=== PATIENT | female | born 1945 | race Caucasian/White ===

== ENCOUNTER 2021-07-04 16:23 | Emergency (ER) | payer OTHER ==
[~2021-07-04] VITALS: Ht 177.8 cm; Wt 99.8 kg
--- NOTE | 2021-07-04 16:52 | NUR ---
TO ER BED 3, C/O C/O ABDOMINAL PAIN, NAUSEA AND VOMITING STARTED YESTERDAY, SALINE LOCK ESTABLISHED, BLOOD DRAWN
[2021-07-04 17:23] LABS: BASOPHILS # (AUTO) 0.1 K/uL (0.0-0.2); BASOPHILS % (AUTO) 0.9 % (0.0-2.0); EOSINOPHILS % (AUTO) 1.2 % (0.0-6.0); HEMATOCRIT 41 % (33-45); HEMOGLOBIN 13.9 g/dL (11.5-14.8); LYMPHOCYTES # (AUTO) 1.6 K/uL (0.8-4.8); LYMPHOCYTES % (AUTO) 19.2 % (20.0-44.0); MEAN CORPUSCULAR HGB CONC 34 g/dl (31.0-36.0); MEAN CORPUSCULAR VOLUME 90 fL (82-100); MONOCYTES # (AUTO) 0.6 K/uL (0.1-1.30); MONOCYTES % (AUTO) 7.1 % (2.0-12.0); NEUTROPHILS % (AUTO) 71.6 % (43.0-81.0); PLATELET COUNT (AUTO) 176 K/uL (150-450); RED BLOOD CELL COUNT(AUTO) 4.58 MIL/uL (4.0-5.2); WHITE BLOOD COUNT (AUTO) 8.4 K/uL (4.3-11.0)
[2021-07-04] MEDS ORDERED: MORPHINE SULFATE INJ 4 MG/ML DISP.SYRIN ONE (17:23)
[2021-07-04] MEDS ORDERED: ONDANSETRON HCL/PF 4 MG/2 ML VIAL ONE (17:23)
[2021-07-04] MEDS ORDERED: ONDANSETRON HCL/PF 4 MG/2 ML VIAL IVP ONE (17:30)
[2021-07-04] MEDS ORDERED: MORPHINE SULFATE INJ 2 MG/ML DISP.SYRIN IV ONE (17:30)
[2021-07-04 17:50] LABS: ASPARTATE AMINOTRANSFERASE 8 U/L (15-37)
[2021-07-04 17:59] LABS: CALCIUM, SERUM 8.8 mg/dL (8.5-10.1); CARBON DIOXIDE 26 mmol/L (21-32); CHLORIDE 102 mmol/L (98-107); CREATININE 0.5 mg/dL (0.6-1.3); GLUCOSE 112 mg/dL (74-106); POTASSIUM 4.3 mmol/L (3.5-5.1); SODIUM SERUM 136 mmol/L (136-145); UREA NITROGEN, BLOOD 12 mg/dL (7-18)
[2021-07-04 18:05] LABS: ALANINE AMINOTRANSFERASE 12 U/L (12-78); ALBUMIN 3.2 g/dL (3.4-5.0); ALKALINE PHOSPHATASE 105 U/L (46-116); BILIRUBIN,DIRECT 0.2 mg/dL (0.0-0.2); BILIRUBIN,TOTAL 0.4 mg/dL (0.2-1.0)
[2021-07-04 18:13] LABS: LIPASE 52 U/L (73-393)
--- NOTE | 2021-07-04 19:37 | NUR ---
URINE SENT TO LAB
[2021-07-04 19:50] LABS: BILIRUBIN,URINE NEGATIVE (NEGATIVE); COLOR,URINE YELLOW (YELLOW); LEUKOCYTE ESTERASE ,URINE MODERATE (NEGATIVE); NITRITE, URINE NEGATIVE (NEGATIVE); PH,URINE 7.5 (5.0-8.0); PROTEIN,URINE NEGATIVE (NEGATIVE); UGLUCOSE NEGATIVE (NEGATIVE); UROBILINOGEN,URINE 0.2 EU/dL (0.2)
[2021-07-04 19:58] LABS: BACTERIA,URINE 2+ /HPF (None Seen)
--- NOTE | 2021-07-04 20:44 | NUR ---
AMBULANCE TRANSPORT TO HOME WILL BE BETWEEN 2300 AND MIDNIGHT PER [facility] VIA [facility].
[2021-07-04] MEDS ORDERED: CEFTRIAXONE 1 G in IV D5W 50 ML IV ONE (21:00)
[2021-07-04] MEDS ORDERED: DOCU-141 PO (21:02)
[2021-07-04] MEDS ORDERED: POLY17PO4 PO (21:02)
[2021-07-04] MEDS ORDERED: CEPH500C2 PO (21:02)
[2021-07-04] MEDS ORDERED: CEFTRIAXONE 1GM BAG (ER ONLY) 50 ML IV ONE (21:04)
--- NOTE | 2021-07-04 22:41 | NUR ---
gave report to ems
--- NOTE | 2021-07-04 22:44 | NUR ---
Patient discharged to home in stable condition. Written and verbal after care instructions given. Patient verbalizes understanding of instruction. IV removed. Catheter intact and site benign. Pressure and 4x4 applied to site. No bleeding noted. transferred to ambulance [facility]
[2021-07-05 01:09] VITALS: BP 135/87
== END 2021-07-04 22:44 | disposition home or self-care (01) ==
LOC: ER 16:25
DX: K59.00 Constipation, unspecified (principal); N39.0 Urinary tract infection, site not specified; N13.30 Unspecified hydronephrosis; I45.10 Unspecified right bundle-branch block; G62.9 Polyneuropathy, unspecified; Z90.49 Acquired absence of other specified parts of digestive tract
CPT/HCPCS: 36415; 71045; 74176; 80048; 80076; 81001; 83605; 83690; 84484; 85025; 87086; 93005; 96365; 96375; 99285; J0696 ×2; J2270; J2405; J7060; 87186-TC

== ENCOUNTER 2025-09-06 20:00 | Inpatient (IN) | payer BC ==
[2025-09-05] MEDS: VANCOMYCIN 500 MG in IV D5W 100ml IV ONE (01:00)
[~2025-09-06] VITALS: Ht 167.6 cm; Wt 80.7 kg
[~2025-09-06 20:00] MED LIST: CEPH500C2 PO; DOCU-141 PO; POLY17PO4 PO
[2025-09-06] MEDS ORDERED: PIPERACI/TAZO 3.375GM/D5W 50ML PB IV ONE (20:26)
[2025-09-06] MEDS: IV NS 0.9% 1,000 ML BAG IV ONE (20:30)
[2025-09-06] MEDS: PIPERACILLIN /TAZOBACTAM 3.375 G in IV D5W 50 ML IV ONE (20:30)
[2025-09-06 20:59] LABS: PLATELET COUNT (AUTO) 297 K/uL (150-450); RED BLOOD CELL COUNT(AUTO) 4.68 MIL/uL (4.0-5.2); RED CELL DISTRIBUTION WIDTH 14.3 % (11.5-15.0); WHITE BLOOD COUNT (AUTO) 15.6 K/uL (4.3-11.0)
[2025-09-06 21:05] LABS: INR 0.99 (0.91-1.10)
[2025-09-06] MEDS ORDERED: VANCOMYCIN 1 GM /D5W 250 ML PB IV ONE (21:07)
[2025-09-06] MEDS: VANCOMYCIN 1 GM in IV D5W 250 ML IV ONE (21:10)
[2025-09-06 21:15] LABS: CALCIUM, SERUM 8.9 mg/dL (8.5-10.1); CREATININE 0.9 mg/dL (0.6-1.3); SODIUM SERUM 132 mmol/L (136-145); UREA NITROGEN, BLOOD 54 mg/dL (7-18)
[2025-09-06 21:28] LABS: ASPARTATE AMINOTRANSFERASE 18 U/L (15-37); TOTAL PROTEIN, SERUM 7.1 g/dL (6.4-8.2)
[2025-09-06 21:33] LABS: LACTIC ACID 2.1 mmol/L (0.4-2.0)
[2025-09-06 21:42] LABS: APPEARANCE,URINE SLIGHTLY CLOUDY (CLEAR); BLOOD, URINE NEGATIVE Ery/uL (NEGATIVE); LEUKOCYTE ESTERASE ,URINE 2+ (NEGATIVE); NITRITE, URINE POSITIVE (NEGATIVE); UGLUCOSE NEGATIVE (NEGATIVE)
[2025-09-06 21:59] LABS: SQUAMOUS EPITHELIAL CELL,UR Moderate /HPF (None Seen)
[2025-09-06 22:00] LABS: ADD URINE CULTURE YES
[2025-09-06] MEDS ORDERED: ACETAMINOPHEN 325 MG TABLET PO PRN (22:00)
[2025-09-06] MEDS ORDERED: Z GUARD REMEDY 4 OZ OINT TP PRN (22:00)
[2025-09-06] MEDS ORDERED: ONDANSETRON HCL/PF 4 MG/2 ML VIAL IVP PRN (22:00)
[2025-09-06] MEDS ORDERED: MAGNESIUM HYDROXIDE 30 ML UDC PO PRN (22:00)
[2025-09-06] MEDS ORDERED: DOSING PER PHARMACY-VANCOMYCIN IV XX PRN (22:00)
[2025-09-06 22:02] LABS: URINE AMORPHOUS URATE Few /HPF (None Seen)
[2025-09-06] MEDS ORDERED: LEVE500T20 PO (22:25)
[2025-09-06] MEDS ORDERED: LISI-768 PO (22:26)
[2025-09-06] MEDS ORDERED: AMLO-212 PO (22:27)
[2025-09-06] MEDS ORDERED: PANT40TA49 PO (22:27)
[2025-09-06 23:30] VITALS: BP 120/59; O2SAT 96
[2025-09-06] MEDS ORDERED: PANTOPRAZOLE 40 MG TABLET.DR PO SCH (23:30)
[2025-09-06] MEDS ORDERED: AMLODIPINE BESYLATE 5 MG TABLET PO SCH (23:30)
[2025-09-07] VITALS (45 sets, daily range): BP systolic 61–137; BP diastolic 36–65; TEMP 97.6–98.7; O2SAT 80–100
[2025-09-07 00:05] LABS: ABG BASE EXCESS -5.5 mmol/L (-2.0-3.0); ABG OXYGEN SATURATION 92.3 % (94.0-98.0); ABG PCO2 68.7 mmHg (32.0-45.0); ABG PH 7.170 (7.350-7.450); ABG PO2 70.6 mmHg (83.0-108.0); ABG TOTAL HEMOGLOBIN 14.6 G/dL (12.0-16.0); FLOW, BLOOD GAS 15.00 L/min (0.00-30.00); FRACTIONATED INSPIRED OXYGEN 80.0 %; SITE, ABG RIGHT RADIAL
[2025-09-07] MEDS ORDERED: VANCOMYCIN 500 MG VIAL ONE (00:24)
[2025-09-07] MEDS: ENOXAPARIN SODIUM 30 MG/0.3 ML DISP.SYRIN SQ SCH (01:40)
[2025-09-07] MEDS: PIPERACI/TAZO 3.375GM/D5W 50ML PB IV ONE (03:46)
[2025-09-07] MEDS: PIPERACILLIN /TAZOBACTAM 3.375 G in IV D5W 50 ML IV SCH (04:29)
[2025-09-07 05:36] LABS: PLATELET COUNT (AUTO) 279 K/uL (150-450); RED BLOOD CELL COUNT(AUTO) 4.52 MIL/uL (4.0-5.2); RED CELL DISTRIBUTION WIDTH 14.7 % (11.5-15.0); WHITE BLOOD COUNT (AUTO) 15.3 K/uL (4.3-11.0)
[2025-09-07 05:50] LABS: CALCIUM, SERUM 8.6 mg/dL (8.5-10.1); CREATININE 0.7 mg/dL (0.6-1.3); PHOSPHORUS 4.1 mg/dL (2.5-4.9); SODIUM SERUM 131.0 mmol/L (136-145); UREA NITROGEN, BLOOD 48.0 mg/dL (7-18)
[2025-09-07] MEDS: LEVETIRACETAM (250 MG) 250 MG TABLET PO SCH (08:40)
[2025-09-07] MEDS: POLYETHYLENE GLYCOL 3350 17 GM POWD.PACK PO SCH (08:41)
[2025-09-07] MEDS: AMLODIPINE BESYLATE 5 MG TABLET PO SCH (08:41)
[2025-09-07] MEDS: PANTOPRAZOLE 40 MG TABLET.DR PO SCH (08:42)
[2025-09-07] MEDS: LISINOPRIL (5MG) 5 MG TABLET PO SCH (08:47)
[2025-09-07] MEDS: DOCUSATE SODIUM LIQ 100 MG/10 ML UDC GT SCH (08:48)
[2025-09-07] MEDS: IV NS 0.9% 1,000 ML IV PRN (08:51)
[2025-09-07] MEDS ORDERED: DOCUSATE SODIUM 100 MG CAPSULE PO SCH (09:00)
[2025-09-07] MEDS ORDERED: MULT-594 PO (09:26)
[2025-09-07] MEDS ORDERED: LINA145C PO (09:26)
[2025-09-07] MEDS ORDERED: FLUO20CA36 PO (09:26)
[2025-09-07] MEDS ORDERED: LORA-258 PO (09:26)
[2025-09-07] MEDS ORDERED: DOCU100C36 PO (09:26)
[2025-09-07] MEDS ORDERED: PRED5DRO24 EACHEYE (09:26)
[2025-09-07] MEDS ORDERED: CARB15DR LEFTEYE (09:26)
[2025-09-07] MEDS ORDERED: PREG-58 PO (09:26)
[2025-09-07] MEDS ORDERED: BRIN8DRO2 RIGHTEYE (09:26)
[2025-09-07] MEDS ORDERED: ACET-73 PO (09:26)
[2025-09-07 11:29] LABS: ABG BASE EXCESS -2.1 mmol/L (-2.0-3.0); ABG OXYGEN SATURATION 98.4 % (94.0-98.0); ABG PCO2 47.3 mmHg (32.0-45.0); ABG PH 7.327 (7.350-7.450); ABG PO2 108.3 mmHg (83.0-108.0); ABG TOTAL HEMOGLOBIN 14.3 G/dL (12.0-16.0); FRACTIONATED INSPIRED OXYGEN 80.0 %; SET RATE, BG 20.0; SITE, ABG RIGHT RADIAL
[2025-09-07] MEDS: PIPERACILLIN /TAZOBACTAM 3.375 G in IV D5W 100 ML IV SCH (11:32)
[2025-09-07] MEDS: VANCOMYCIN 1 GM in IV D5W 250ml IV SCH (11:38)
[2025-09-07] MEDS: MULTIVITAMINS,THERAGRAN 1 UDTAB TABLET PO SCH (17:08)
[2025-09-08] VITALS (65 sets, daily range): BP systolic 66–182; BP diastolic 38–89; TEMP 97.7–98.9; O2SAT 70–100
[2025-09-08 03:01] LABS: CALCIUM, SERUM 8.4 mg/dL (8.5-10.1); CREATININE 0.7 mg/dL (0.6-1.3); SODIUM SERUM 134.0 mmol/L (136-145); UREA NITROGEN, BLOOD 50.0 mg/dL (7-18)
[2025-09-08] MEDS ORDERED: VANCOMYCIN 750 MG in IV D5W 250 ML IV SCH (06:00)
[2025-09-08] MEDS ORDERED: IV LR 500 ML IV ONE (06:00)
[2025-09-08] MEDS: IV LR 1000 ML 1,000 ML BAG IV ONE (07:48)
[2025-09-08] MEDS: FLUOXETINE HCL 20 MG CAPSULE PO SCH (09:00)
[2025-09-08] MEDS: CARBOXYMETHYLCELLULOSE SODIUM 1 EA TUBE LEFTEYE SCH (09:40)
[2025-09-08] MEDS: BRIMONIDINE TARTRATE OPHT SOLN 5 ML BOTTLE RIGHTEYE SCH (09:42)
[2025-09-08] MEDS: prednisoLONE ACET 1% OPHT DROP 5 ML BOTTLE EACHEYE SCH (09:43)
[2025-09-08] MEDS: DAKINS QUARTER STRENGTH (0.125%) 480 ML BOTTLE TOP SCH (09:43)
[2025-09-08] MEDS: BRINZOLAMIDE 1 % OPHTH SOLN 10 ML BOTTLE RIGHTEYE SCH (10:49)
[2025-09-08] MEDS: MAG HYDROX/AL HYDROX/SIMETH 30 ML UDC PO PRN (11:52)
[2025-09-08] MEDS: DOCUSATE SODIUM 100 MG CAPSULE PO SCH (13:21)
[2025-09-08] MEDS: LIDOCAINE 2%-EPI 1:100,000 30 ML VIAL IJ ONE (14:57)
[2025-09-08] MEDS: NOREPINEPHRINE 8 MG in IV NS 0.9% 242 ML IV PRN (17:58)
[2025-09-08] MEDS: IV NS 0.9% 250 ML IV PRN (19:30)
[2025-09-09] VITALS (30 sets, daily range): BP systolic 94–168; BP diastolic 44–86; TEMP 97.4–98; O2SAT 83–100
[2025-09-09 04:22] LABS: PLATELET COUNT (AUTO) 121 K/uL (150-450); RED BLOOD CELL COUNT(AUTO) 3.74 MIL/uL (4.0-5.2); RED CELL DISTRIBUTION WIDTH 14.7 % (11.5-15.0); WHITE BLOOD COUNT (AUTO) 14.5 K/uL (4.3-11.0)
[2025-09-09 04:34] LABS: CALCIUM, SERUM 8.7 mg/dL (8.5-10.1); CREATININE 0.5 mg/dL (0.6-1.3); PHOSPHORUS 2.4 mg/dL (2.5-4.9); SODIUM SERUM 140.0 mmol/L (136-145); UREA NITROGEN, BLOOD 38.0 mg/dL (7-18)
[2025-09-09] MEDS: VANCOMYCIN 750 MG in IV D5W 250 ML IV SCH (05:30)
[2025-09-09] MEDS: THERAHONEY GEL 1.5 OZ TUBE TP SCH (08:42)
[2025-09-09] MEDS ORDERED: PHARMACY TO CHANGE PO MEDS TO GT/NG XX PRN (10:00)
[2025-09-09] MEDS ORDERED: MAG HYDROX/AL HYDROX/SIMETH 30 ML UDC GT PRN (10:05)
[2025-09-09] MEDS ORDERED: MAGNESIUM HYDROXIDE 30 ML UDC GT PRN (10:06)
[2025-09-09] MEDS: POTASSIUM CHLORIDE 20 MEQ TAB.PRT.SR PO SCH (10:27)
[2025-09-09] MEDS: DOCUSATE SODIUM LIQ 100 MG/10 ML UDC GT SCH (12:16)
[2025-09-09] MEDS: JEVITY 1.2 CAL 1,000 ML BOTTLE GT PRN (12:44)
[2025-09-09] MEDS: NEUTRA PHOS 1 POWD.PACKET GT ONE (16:19)
[2025-09-09] MEDS: LEVETIRACETAM SOL (5 ML) 100 MG/ML UDC GT SCH (16:19)
[2025-09-09] MEDS: MULTIVITAMINS,THERAGRAN 1 UDTAB TABLET GT SCH (16:19)
[2025-09-09] MEDS: CEFEPIME 1 GM in IV D5W 50 ML IV SCH (21:01)
[2025-09-09] MEDS: Z GUARD REMEDY 4 OZ OINT TP SCH (21:06)
[2025-09-10] VITALS (26 sets, daily range): BP systolic 110–175; BP diastolic 52–92; TEMP 97.9–98.9; O2SAT 98–100
[2025-09-10 06:11] LABS: CALCIUM, SERUM 8.7 mg/dL (8.5-10.1); CREATININE 0.4 mg/dL (0.6-1.3); PHOSPHORUS 2.0 mg/dL (2.5-4.9); SODIUM SERUM 143.0 mmol/L (136-145); UREA NITROGEN, BLOOD 23.0 mg/dL (7-18)
[2025-09-10 09:13] LABS: PLATELET COUNT (AUTO) 232 K/uL (150-450); RED BLOOD CELL COUNT(AUTO) 4.22 MIL/uL (4.0-5.2); RED CELL DISTRIBUTION WIDTH 14.4 % (11.5-15.0); WHITE BLOOD COUNT (AUTO) 14.5 K/uL (4.3-11.0)
[2025-09-10] MEDS: FLUOXETINE HCL 20 MG CAPSULE GT SCH (10:00)
[2025-09-10] MEDS: POLYETHYLENE GLYCOL 3350 17 GM POWD.PACK GT SCH (10:01)
[2025-09-10] MEDS: PANTOPRAZOLE 40 MG/PACK PACK GT SCH (10:01)
[2025-09-10] MEDS: ARGININE/GLUTAMINE/CALCIUM BMB 1 EACH POWD.PACK PEG SCH (10:07)
[2025-09-10] MEDS: POTASSIUM CHLORIDE 20 MEQ POWDER PACKET GT ONE (11:43)
[2025-09-10] MEDS: ACETAMINOPHEN 650 MG/20.3 ML UDC GT PRN (12:39)
[2025-09-10] MEDS: NEUTRA PHOS 1 POWD.PACKET PO ONE (15:41)
[2025-09-10] MEDS: JEVITY 1.2 CAL 1,000 ML BOTTLE GT PRN (21:31)
[2025-09-11] VITALS (24 sets, daily range): BP systolic 116–153; BP diastolic 54–92; TEMP 97.9–98.3; O2SAT 97–100
[2025-09-11 03:46] LABS: PLATELET COUNT (AUTO) 239 K/uL (150-450); RED BLOOD CELL COUNT(AUTO) 4.34 MIL/uL (4.0-5.2); RED CELL DISTRIBUTION WIDTH 14.5 % (11.5-15.0); WHITE BLOOD COUNT (AUTO) 13.2 K/uL (4.3-11.0)
[2025-09-11 04:00] LABS: CALCIUM, SERUM 8.7 mg/dL (8.5-10.1); CREATININE 0.5 mg/dL (0.6-1.3); PHOSPHORUS 2.1 mg/dL (2.5-4.9); SODIUM SERUM 147.0 mmol/L (136-145); UREA NITROGEN, BLOOD 17.0 mg/dL (7-18)
[2025-09-11 05:03] LABS: ABG BASE EXCESS 1.8 mmol/L (-2.0-3.0); ABG OXYGEN SATURATION 98.7 % (94.0-98.0); ABG PCO2 33.3 mmHg (32.0-45.0); ABG PH 7.487 (7.350-7.450); ABG PO2 122.5 mmHg (83.0-108.0); ABG TOTAL HEMOGLOBIN 14.0 G/dL (12.0-16.0); FRACTIONATED INSPIRED OXYGEN 50.0 %; SET RATE, BG 20.0
[2025-09-11 05:50] LABS: LYMPHOCYTES % (MANUAL) 8 % (16-48); MONOCYTES % (MANUAL) 8 % (0-11.0); MYELOCYTES % 1 % (0-0); NEUTROPHILS % (MANUAL) 83 (42-76); PLATELET ESTIMATE ADEQUATE
[2025-09-11] MEDS: IV 1/2NS 1000 ML 1,000 ML IV SCH (09:44)
[2025-09-11] MEDS: CEFEPIME 2 GM in IV D5W 100 ML IV SCH (11:00)
[2025-09-11] MEDS: NEUTRA PHOS 1 POWD.PACKET NG ONE (16:51)
[2025-09-12] VITALS (25 sets, daily range): BP systolic 106–142; BP diastolic 49–89; TEMP 98–98.1; O2SAT 94–100
[2025-09-12 05:13] LABS: PLATELET COUNT (AUTO) 196 K/uL (150-450); RED BLOOD CELL COUNT(AUTO) 4.33 MIL/uL (4.0-5.2); RED CELL DISTRIBUTION WIDTH 14.7 % (11.5-15.0); WHITE BLOOD COUNT (AUTO) 13.0 K/uL (4.3-11.0)
[2025-09-12 05:26] LABS: ASPARTATE AMINOTRANSFERASE 22 U/L (15-37); CALCIUM, SERUM 7.8 mg/dL (8.5-10.1); CREATININE 0.3 mg/dL (0.6-1.3); PHOSPHORUS 2.3 mg/dL (2.5-4.9); SODIUM SERUM 138 mmol/L (136-145); TOTAL PROTEIN, SERUM 5.8 g/dL (6.4-8.2); UREA NITROGEN, BLOOD 26 mg/dL (7-18)
[2025-09-12 05:47] LABS: BAND % (MANUAL) 2 % (0.0-5.0); LYMPHOCYTES % (MANUAL) 11 % (16-48); MONOCYTES % (MANUAL) 9 % (0-11.0); NEUTROPHILS % (MANUAL) 78 (42-76); PLATELET ESTIMATE ADEQUATE
[2025-09-12] MEDS: ENOXAPARIN SODIUM 40 MG/0.4 ML DISP.SYRIN SQ SCH (09:19)
[2025-09-12] MEDS: ACETYLCYSTEINE 10% SOLN 400 MG/4 ML VIAL NEB SCH (09:21)
[2025-09-12] MEDS: FUROSEMIDE 40 MG/4 ML VIAL IV SCH (10:14)
[2025-09-12] MEDS ORDERED: LOSARTAN POTASSIUM 50 MG TABLET PO SCH (11:30)
[2025-09-12] MEDS: NEUTRA PHOS 1 POWD.PACKET GT ONE (15:49)
[2025-09-12] MEDS ORDERED: DIATR MEGLU/DIATRIZOATE SODIUM 30 ML BOTTLE (GASTROGRAPHIN) ONE (17:16)
[2025-09-13] VITALS (23 sets, daily range): BP systolic 92–139; BP diastolic 45–98; TEMP 97.8–98; O2SAT 91–100
[2025-09-13 05:17] LABS: CALCIUM, SERUM 8.3 mg/dL (8.5-10.1); CREATININE 0.4 mg/dL (0.6-1.3); PHOSPHORUS 3.1 mg/dL (2.5-4.9); SODIUM SERUM 140.0 mmol/L (136-145); UREA NITROGEN, BLOOD 26.0 mg/dL (7-18)
[2025-09-13] MEDS ORDERED: VANCOMYCIN HCL 1.25 GM in IV D5W 250 ML IV SCH (06:00)
[2025-09-13 10:30] LABS: PLATELET COUNT (AUTO) 223 K/uL (150-450); RED BLOOD CELL COUNT(AUTO) 4.48 MIL/uL (4.0-5.2); RED CELL DISTRIBUTION WIDTH 14.6 % (11.5-15.0); WHITE BLOOD COUNT (AUTO) 18.5 K/uL (4.3-11.0)
[2025-09-13] MEDS ORDERED: DIATR MEGLU/DIATRIZOATE SODIUM 30 ML BOTTLE (GASTROGRAPHIN) ONE (10:34)
[2025-09-13] MEDS: DIGOXIN INJ 0.5 MG/2 ML AMPUL IV SCH (12:33)
[2025-09-13 15:28] LABS: ABG BASE EXCESS 2.5 mmol/L (-2.0-3.0); ABG OXYGEN SATURATION 98.6 % (94.0-98.0); ABG PCO2 30.9 mmHg (32.0-45.0); ABG PH 7.520 (7.350-7.450); ABG PO2 115.1 mmHg (83.0-108.0); ABG TOTAL HEMOGLOBIN 13.6 G/dL (12.0-16.0); FRACTIONATED INSPIRED OXYGEN 40.0 %; SITE, ABG RIGHT RADIAL
[2025-09-14] VITALS (53 sets, daily range): BP systolic 97–168; BP diastolic 44–118; TEMP 98–98.5; O2SAT 69–100
[2025-09-14 05:09] LABS: PLATELET COUNT (AUTO) 224 K/uL (150-450); RED BLOOD CELL COUNT(AUTO) 4.24 MIL/uL (4.0-5.2); RED CELL DISTRIBUTION WIDTH 14.5 % (11.5-15.0); WHITE BLOOD COUNT (AUTO) 18.1 K/uL (4.3-11.0)
[2025-09-14] MEDS ORDERED: AMIODARONE 450 MG in IV D5W 250 ML IV PRN (10:30)
[2025-09-14] MEDS: AMIODARONE 150 MG in IV D5W 100 ML IV ONE (11:24)
[2025-09-14] MEDS: AMIODARONE 450 MG in IV D5W 241 ML IV PRN (11:39)
[2025-09-14] MEDS ORDERED: DIATR MEGLU/DIATRIZOATE SODIUM 30 ML BOTTLE (GASTROGRAPHIN) ONE (16:13)
[2025-09-14] MEDS: DOCUSATE SODIUM 100 MG CAPSULE PO SCH (18:30)
[2025-09-14] MEDS: ENOXAPARIN SODIUM 80 MG/0.8 ML DISP.SYRIN SQ SCH (21:36)
[2025-09-14] MEDS: POLYETHYLENE GLYCOL 3350 17 GM POWD.PACK PO SCH (21:36)
[2025-09-15] VITALS (48 sets, daily range): BP systolic 109–169; BP diastolic 37–108; TEMP 98–98.8; O2SAT 92–100
[2025-09-15 04:53] LABS: PLATELET COUNT (AUTO) 243 K/uL (150-450); RED BLOOD CELL COUNT(AUTO) 4.16 MIL/uL (4.0-5.2); RED CELL DISTRIBUTION WIDTH 14.3 % (11.5-15.0); WHITE BLOOD COUNT (AUTO) 17.8 K/uL (4.3-11.0)
[2025-09-15 09:16] LABS: ASPARTATE AMINOTRANSFERASE 32.0 U/L (15-37); CALCIUM, SERUM 8.3 mg/dL (8.5-10.1); CREATININE 0.4 mg/dL (0.6-1.3); SODIUM SERUM 143.0 mmol/L (136-145); TOTAL PROTEIN, SERUM 5.9 g/dL (6.4-8.2); UREA NITROGEN, BLOOD 24.0 mg/dL (7-18)
[2025-09-15] MEDS: POTASSIUM CHLORIDE 20 MEQ POWDER PACKET GT ONE (10:38)
[2025-09-15] MEDS: ACETYLCYSTEINE 10% SOLN 400 MG/4 ML VIAL NEB SCH (12:26)
[2025-09-15] MEDS: DOCUSATE SODIUM LIQ 100 MG/10 ML UDC PEG SCH (13:02)
[2025-09-15] MEDS: MULTIVITAMINS,THERAGRAN 1 UDTAB TABLET GT SCH (16:06)
[2025-09-16] VITALS (48 sets, daily range): BP systolic 120–165; BP diastolic 39–64; TEMP 97.8–98.2; O2SAT 80–100
[2025-09-16 04:22] LABS: PLATELET COUNT (AUTO) 228 K/uL (150-450); RED BLOOD CELL COUNT(AUTO) 3.98 MIL/uL (4.0-5.2); RED CELL DISTRIBUTION WIDTH 14.5 % (11.5-15.0); WHITE BLOOD COUNT (AUTO) 18.2 K/uL (4.3-11.0)
[2025-09-16 04:47] LABS: ASPARTATE AMINOTRANSFERASE 27.0 U/L (15-37); CALCIUM, SERUM 8.2 mg/dL (8.5-10.1); CREATININE 0.3 mg/dL (0.6-1.3); TOTAL PROTEIN, SERUM 5.8 g/dL (6.4-8.2); UREA NITROGEN, BLOOD 25.0 mg/dL (7-18)
[2025-09-16 05:02] LABS: SODIUM SERUM 143.0 mmol/L (136-145)
[2025-09-16 07:55] LABS: ABG BASE EXCESS 4.3 mmol/L (-2.0-3.0); ABG OXYGEN SATURATION 97.1 % (94.0-98.0); ABG PCO2 47.7 mmHg (32.0-45.0); ABG PH 7.412 (7.350-7.450); ABG PO2 89.9 mmHg (83.0-108.0); ABG TOTAL HEMOGLOBIN 12.4 G/dL (12.0-16.0); FLOW, BLOOD GAS 6.00 L/min (0.00-30.00); FRACTIONATED INSPIRED OXYGEN 44.0 %; SITE, ABG RIGHT BRACHIAL
[2025-09-16] MEDS: AMIODARONE HCL 200 MG TABLET PO SCH (09:20)
[2025-09-16] MEDS: ENOXAPARIN SODIUM 40 MG/0.4 ML DISP.SYRIN SQ SCH (09:22)
[2025-09-16] MEDS: VITAL AF 1.2 1,000 ML BOTTLE GT SCH (18:06)
[2025-09-17] VITALS (41 sets, daily range): BP systolic 123–162; BP diastolic 42–73; TEMP 97.8–98.7; O2SAT 93–100
[2025-09-17 04:45] LABS: PLATELET COUNT (AUTO) 202 K/uL (150-450); RED BLOOD CELL COUNT(AUTO) 3.50 MIL/uL (4.0-5.2); RED CELL DISTRIBUTION WIDTH 14.9 % (11.5-15.0); WHITE BLOOD COUNT (AUTO) 14.2 K/uL (4.3-11.0)
[2025-09-17 04:50] LABS: CALCIUM, SERUM 8.0 mg/dL (8.5-10.1); CREATININE 0.4 mg/dL (0.6-1.3); SODIUM SERUM 145.0 mmol/L (136-145); UREA NITROGEN, BLOOD 33.0 mg/dL (7-18)
[2025-09-17 04:56] LABS: ASPARTATE AMINOTRANSFERASE 24.0 U/L (15-37); PHOSPHORUS 1.4 mg/dL (2.5-4.9); TOTAL PROTEIN, SERUM 5.2 g/dL (6.4-8.2)
[2025-09-17] MEDS: NEUTRA PHOS 1 POWD.PACKET GT ONE (16:16)
[2025-09-18] VITALS (26 sets, daily range): BP systolic 119–182; BP diastolic 37–108; TEMP 97.6–98.1; O2SAT 80–100
[2025-09-18 04:32] LABS: PLATELET COUNT (AUTO) 229 K/uL (150-450); RED BLOOD CELL COUNT(AUTO) 3.53 MIL/uL (4.0-5.2); RED CELL DISTRIBUTION WIDTH 14.8 % (11.5-15.0); WHITE BLOOD COUNT (AUTO) 14.3 K/uL (4.3-11.0)
[2025-09-18 04:59] LABS: CALCIUM, SERUM 8.4 mg/dL (8.5-10.1); CREATININE 0.3 mg/dL (0.6-1.3); SODIUM SERUM 146.0 mmol/L (136-145); UREA NITROGEN, BLOOD 26.0 mg/dL (7-18)
[2025-09-18 05:04] LABS: ASPARTATE AMINOTRANSFERASE 27.0 U/L (15-37); PHOSPHORUS 1.4 mg/dL (2.5-4.9); TOTAL PROTEIN, SERUM 5.8 g/dL (6.4-8.2)
[2025-09-18 10:49] LABS: ABG BASE EXCESS 9.0 mmol/L (-2.0-3.0); ABG OXYGEN SATURATION 99.2 % (94.0-98.0); ABG PCO2 40.3 mmHg (32.0-45.0); ABG PH 7.525 (7.350-7.450); ABG PO2 184.2 mmHg (83.0-108.0); ABG TOTAL HEMOGLOBIN 11.1 G/dL (12.0-16.0); FRACTIONATED INSPIRED OXYGEN 90.0 %; SET RATE, BG 20.0; SITE, ABG ALINE
[2025-09-18] MEDS: NEUTRA PHOS 1 POWD.PACKET PO ONE (12:16)
[2025-09-18] MEDS: NEOMY SULF/BACITRAC ZN/POLY 15 GM TUBE TP SCH (12:18)
[2025-09-18] MEDS ORDERED: MUPIROCIN OINT 2% 22 GM TUBE NS SCH (15:00)
[2025-09-19] VITALS (24 sets, daily range): BP systolic 110–153; BP diastolic 39–118; TEMP 98–98.4; O2SAT 90–100
[2025-09-19 05:01] LABS: ASPARTATE AMINOTRANSFERASE 24.0 U/L (15-37); CALCIUM, SERUM 8.1 mg/dL (8.5-10.1); CREATININE 0.3 mg/dL (0.6-1.3); SODIUM SERUM 145.0 mmol/L (136-145); TOTAL PROTEIN, SERUM 5.5 g/dL (6.4-8.2); UREA NITROGEN, BLOOD 26.0 mg/dL (7-18)
[2025-09-19 05:43] LABS: PLATELET COUNT (AUTO) 236 K/uL (150-450); RED BLOOD CELL COUNT(AUTO) 3.21 MIL/uL (4.0-5.2); RED CELL DISTRIBUTION WIDTH 14.5 % (11.5-15.0); WHITE BLOOD COUNT (AUTO) 13.7 K/uL (4.3-11.0)
[2025-09-19 06:12] LABS: PHOSPHORUS 0.8 mg/dL (2.5-4.9)
[2025-09-19] MEDS: NEUTRA PHOS 1 POWD.PACKET PO ONE ×2 (07:48→16:35)
[2025-09-19] MEDS: POTASSIUM CHLORIDE 20 MEQ POWDER PACKET GT SCH (10:14)
[2025-09-19 12:09] LABS: CALCIUM, SERUM 8.5 mg/dL (8.5-10.1); CREATININE 0.4 mg/dL (0.6-1.3); PHOSPHORUS 1.4 mg/dL (2.5-4.9); SODIUM SERUM 147.0 mmol/L (136-145); UREA NITROGEN, BLOOD 31.0 mg/dL (7-18)
[2025-09-19] MEDS ORDERED: CEFEPIME 1 GM in IV D5W 50 ML IV SCH (16:00)
[2025-09-19] MEDS: FREE WATER VIA TUBE FEEDING GT SCH (16:37)
[2025-09-19] MEDS: CEFEPIME 2 GM in IV D5W 100 ML IV SCH (17:30)
[2025-09-20] VITALS (25 sets, daily range): BP systolic 124–159; BP diastolic 49–107; TEMP 97.7–98.4; O2SAT 89–98
[2025-09-20 05:04] LABS: PLATELET COUNT (AUTO) 220 K/uL (150-450); RED BLOOD CELL COUNT(AUTO) 3.18 MIL/uL (4.0-5.2); RED CELL DISTRIBUTION WIDTH 15.3 % (11.5-15.0); WHITE BLOOD COUNT (AUTO) 12.4 K/uL (4.3-11.0)
[2025-09-20 05:12] LABS: CALCIUM, SERUM 8.1 mg/dL (8.5-10.1); CREATININE 0.3 mg/dL (0.6-1.3); SODIUM SERUM 141.0 mmol/L (136-145); UREA NITROGEN, BLOOD 26.0 mg/dL (7-18)
[2025-09-20 05:23] LABS: ASPARTATE AMINOTRANSFERASE 27.0 U/L (15-37); TOTAL PROTEIN, SERUM 5.9 g/dL (6.4-8.2)
[2025-09-20 05:25] LABS: PHOSPHORUS 1.4 mg/dL (2.5-4.9)
[2025-09-20] MEDS: POTASSIUM PHOSPHATE MM 7.5 MMOL in IV NS 0.9% 100 ML IV SCH (10:07)
[2025-09-20 11:13] LABS: ABG BASE EXCESS 6.8 mmol/L (-2.0-3.0); ABG OXYGEN SATURATION 91.2 % (94.0-98.0); ABG PCO2 49.7 mmHg (32.0-45.0); ABG PH 7.429 (7.350-7.450); ABG PO2 57.8 mmHg (83.0-108.0); ABG TOTAL HEMOGLOBIN 11.4 G/dL (12.0-16.0); FRACTIONATED INSPIRED OXYGEN 65.0 %; SET RATE, BG 20.0; SITE, ABG RIGHT RADIAL
[2025-09-20] MEDS: FUROSEMIDE 40 MG/4 ML VIAL IV ONE (13:56)
[2025-09-21] VITALS (24 sets, daily range): BP systolic 116–170; BP diastolic 45–74; TEMP 97.2–98.5; O2SAT 89–99
[2025-09-21 04:48] LABS: PLATELET COUNT (AUTO) 262 K/uL (150-450); RED BLOOD CELL COUNT(AUTO) 3.31 MIL/uL (4.0-5.2); RED CELL DISTRIBUTION WIDTH 14.9 % (11.5-15.0); WHITE BLOOD COUNT (AUTO) 16.7 K/uL (4.3-11.0)
[2025-09-21 05:19] LABS: ASPARTATE AMINOTRANSFERASE 23 U/L (15-37); CALCIUM, SERUM 8.2 mg/dL (8.5-10.1); CREATININE 0.3 mg/dL (0.6-1.3); PHOSPHORUS 2.9 mg/dL (2.5-4.9); SODIUM SERUM 141 mmol/L (136-145); TOTAL PROTEIN, SERUM 6.4 g/dL (6.4-8.2); UREA NITROGEN, BLOOD 21 mg/dL (7-18)
[2025-09-21] MEDS: BUMETANIDE INJ 0.25 MG/ML VIAL IV SCH (10:14)
[2025-09-22] VITALS (29 sets, daily range): BP systolic 109–165; BP diastolic 42–66; TEMP 98–99; O2SAT 93–100
[2025-09-22 05:11] LABS: PLATELET COUNT (AUTO) 222 K/uL (150-450); RED BLOOD CELL COUNT(AUTO) 3.29 MIL/uL (4.0-5.2); RED CELL DISTRIBUTION WIDTH 15.4 % (11.5-15.0); WHITE BLOOD COUNT (AUTO) 23.0 K/uL (4.3-11.0)
[2025-09-22 05:25] LABS: CALCIUM, SERUM 8.4 mg/dL (8.5-10.1); CREATININE 0.4 mg/dL (0.6-1.3); SODIUM SERUM 137.0 mmol/L (136-145); UREA NITROGEN, BLOOD 19.0 mg/dL (7-18)
[2025-09-22 05:30] LABS: ASPARTATE AMINOTRANSFERASE 20.0 U/L (15-37); TOTAL PROTEIN, SERUM 6.4 g/dL (6.4-8.2)
[2025-09-22 06:04] LABS: PHOSPHORUS 2.8 mg/dL (2.5-4.9)
[2025-09-22] MEDS: acetaZOLAMIDE SODIUM 500 MG/VIAL VIAL IV ONE (08:30)
[2025-09-22 08:44] LABS: ABG BASE EXCESS 7.5 mmol/L (-2.0-3.0); ABG OXYGEN SATURATION 97.8 % (94.0-98.0); ABG PCO2 57.5 mmHg (32.0-45.0); ABG PH 7.389 (7.350-7.450); ABG PO2 101.1 mmHg (83.0-108.0); ABG TOTAL HEMOGLOBIN 11.0 G/dL (12.0-16.0); FRACTIONATED INSPIRED OXYGEN 60.0 %; SET RATE, BG 16.0; SITE, ABG RIGHT RADIAL
[2025-09-22 15:30] LABS: ABG BASE EXCESS 7.9 mmol/L (-2.0-3.0); ABG OXYGEN SATURATION 98.9 % (94.0-98.0); ABG PCO2 56.3 mmHg (32.0-45.0); ABG PH 7.400 (7.350-7.450); ABG PO2 141.0 mmHg (83.0-108.0); ABG TOTAL HEMOGLOBIN 10.7 G/dL (12.0-16.0); FLOW, BLOOD GAS 40.00 L/min (0.00-30.00); FRACTIONATED INSPIRED OXYGEN 100.0 %; SITE, ABG RIGHT RADIAL
[2025-09-22] MEDS: LEVETIRACETAM SOL (5 ML) 100 MG/ML UDC GT SCH (21:28)
[2025-09-22] MEDS: AMIODARONE HCL 200 MG TABLET PO SCH (21:28)
[2025-09-22] MEDS: MULTIVITAMINS,THERAGRAN 1 UDTAB TABLET GT SCH (21:29)
[2025-09-22] MEDS: ARGININE/GLUTAMINE/CALCIUM BMB 1 EACH POWD.PACK PEG SCH (21:48)
[2025-09-22] MEDS: BUMETANIDE INJ 0.25 MG/ML VIAL IV SCH (22:02)
[2025-09-23] VITALS (26 sets, daily range): BP systolic 99–152; BP diastolic 41–58; TEMP 97.4–98.2; O2SAT 89–100
[2025-09-23 04:39] LABS: PLATELET COUNT (AUTO) 274 K/uL (150-450); RED BLOOD CELL COUNT(AUTO) 3.38 MIL/uL (4.0-5.2); RED CELL DISTRIBUTION WIDTH 15.4 % (11.5-15.0); WHITE BLOOD COUNT (AUTO) 20.9 K/uL (4.3-11.0)
[2025-09-23 04:45] LABS: CALCIUM, SERUM 8.8 mg/dL (8.5-10.1); CREATININE 0.4 mg/dL (0.6-1.3); SODIUM SERUM 138.0 mmol/L (136-145); UREA NITROGEN, BLOOD 30.0 mg/dL (7-18)
[2025-09-23 04:51] LABS: ASPARTATE AMINOTRANSFERASE 26.0 U/L (15-37); TOTAL PROTEIN, SERUM 6.7 g/dL (6.4-8.2)
[2025-09-23] MEDS: POTASSIUM CHLORIDE 20 MEQ POWDER PACKET GT ONE (08:34)
[2025-09-24] VITALS (32 sets, daily range): BP systolic 107–163; BP diastolic 41–67; TEMP 97.6–98.8; O2SAT 90–100
[2025-09-24 09:03] LABS: ABG BASE EXCESS 14.6 mmol/L (-2.0-3.0); ABG OXYGEN SATURATION 95.7 % (94.0-98.0); ABG PCO2 63.3 mmHg (32.0-45.0); ABG PH 7.432 (7.350-7.450); ABG PO2 75.7 mmHg (83.0-108.0); ABG TOTAL HEMOGLOBIN 10.7 G/dL (12.0-16.0); FLOW, BLOOD GAS 40.00 L/min (0.00-30.00); FRACTIONATED INSPIRED OXYGEN 90.0 %; SITE, ABG RIGHT RADIAL
[2025-09-24 12:11] LABS: PLATELET COUNT (AUTO) 247 K/uL (150-450); RED BLOOD CELL COUNT(AUTO) 3.18 MIL/uL (4.0-5.2); RED CELL DISTRIBUTION WIDTH 15.5 % (11.5-15.0); WHITE BLOOD COUNT (AUTO) 13.1 K/uL (4.3-11.0)
[2025-09-24 12:22] LABS: ASPARTATE AMINOTRANSFERASE 22.0 U/L (15-37); CALCIUM, SERUM 8.6 mg/dL (8.5-10.1); CREATININE 0.3 mg/dL (0.6-1.3); PHOSPHORUS 2.0 mg/dL (2.5-4.9); SODIUM SERUM 139.0 mmol/L (136-145); TOTAL PROTEIN, SERUM 6.5 g/dL (6.4-8.2); UREA NITROGEN, BLOOD 35.0 mg/dL (7-18)
[2025-09-24] MEDS: POTASSIUM CHLORIDE 20 MEQ TAB.PRT.SR PO ONE (14:10)
[2025-09-24] MEDS: NEUTRA PHOS 1 POWD.PACKET PO ONE (18:13)
[2025-09-25] VITALS (28 sets, daily range): BP systolic 133–161; BP diastolic 43–60; TEMP 97.9–99.2; O2SAT 90–100
[2025-09-25 04:23] LABS: PLATELET COUNT (AUTO) 259 K/uL (150-450); RED BLOOD CELL COUNT(AUTO) 3.32 MIL/uL (4.0-5.2); RED CELL DISTRIBUTION WIDTH 16.0 % (11.5-15.0); WHITE BLOOD COUNT (AUTO) 12.3 K/uL (4.3-11.0)
[2025-09-25 04:38] LABS: CALCIUM, SERUM 9.0 mg/dL (8.5-10.1); CREATININE 0.3 mg/dL (0.6-1.3); PHOSPHORUS 2.1 mg/dL (2.5-4.9); UREA NITROGEN, BLOOD 37.0 mg/dL (7-18)
[2025-09-25 04:47] LABS: SODIUM SERUM 140.0 mmol/L (136-145)
[2025-09-25] MEDS: BRINZOLAMIDE 1 % OPHTH SOLN 10 ML BOTTLE RIGHTEYE SCH (10:03)
[2025-09-25 10:28] LABS: ABG BASE EXCESS 18.7 mmol/L (-2.0-3.0); ABG OXYGEN SATURATION 89.2 % (94.0-98.0); ABG PCO2 94.3 mmHg (32.0-45.0); ABG PH 7.332 (7.350-7.450); ABG PO2 58.5 mmHg (83.0-108.0); ABG TOTAL HEMOGLOBIN 11.6 G/dL (12.0-16.0); FLOW, BLOOD GAS 40.00 L/min (0.00-30.00); FRACTIONATED INSPIRED OXYGEN 90.0 %; SITE, ABG RIGHT RADIAL
[2025-09-25] MEDS: ALBUTEROL HALF STRENGTH 1.25 MG/3 ML VIAL.NEB NEB SCH (11:55)
[2025-09-25] MEDS: IPRATROPIUM NEB FS 0.5 MG/2.5 ML AMPUL.NEB NEB SCH (11:55)
[2025-09-25] MEDS: NEUTRA PHOS 1 POWD.PACKET GT ONE (16:21)
[2025-09-26] VITALS (51 sets, daily range): BP systolic 93–167; BP diastolic 37–59; TEMP 97.5–98.7; O2SAT 92–99
[2025-09-26 04:42] LABS: CALCIUM, SERUM 9.1 mg/dL (8.5-10.1); CREATININE 0.4 mg/dL (0.6-1.3); PHOSPHORUS 2.1 mg/dL (2.5-4.9); SODIUM SERUM 142.0 mmol/L (136-145); UREA NITROGEN, BLOOD 52.0 mg/dL (7-18)
[2025-09-26 09:01] LABS: ABG BASE EXCESS 16.6 mmol/L (-2.0-3.0); ABG OXYGEN SATURATION 98.2 % (94.0-98.0); ABG PCO2 76.9 mmHg (32.0-45.0); ABG PH 7.381 (7.350-7.450); ABG PO2 110.4 mmHg (83.0-108.0); ABG TOTAL HEMOGLOBIN 10.3 G/dL (12.0-16.0); FRACTIONATED INSPIRED OXYGEN 80.0 %; SET RATE, BG 16.0; SITE, ABG RIGHT RADIAL
[2025-09-26] MEDS: PROPOFOL 10MG/ML 50ML 50 ML IV PRN ×2 (14:00→18:54)
[2025-09-26 14:10] LABS: ABG BASE EXCESS 18.8 mmol/L (-2.0-3.0); ABG OXYGEN SATURATION 99.5 % (94.0-98.0); ABG PCO2 49.1 mmHg (32.0-45.0); ABG PH 7.561 (7.350-7.450); ABG PO2 203.2 mmHg (83.0-108.0); ABG TOTAL HEMOGLOBIN 9.9 G/dL (12.0-16.0); FRACTIONATED INSPIRED OXYGEN 100.0 %; PEEP,BG 5 cm H2O; SET RATE, BG 18.0; SITE, ABG RIGHT RADIAL; VT, ABG 450 mL
[2025-09-26] MEDS ORDERED: ETOMIDATE 2 MG/ML VIAL IV ONE (14:30)
[2025-09-26] MEDS: NEUTRA PHOS 1 POWD.PACKET GT ONE (17:14)
[2025-09-26] MEDS: MEROPENEM 1 G in IV NS 0.9% 100 ML IV SCH (21:41)
[2025-09-27] VITALS (29 sets, daily range): BP systolic 101–162; BP diastolic 37–93; TEMP 98–99; O2SAT 78–99
[2025-09-27 04:35] LABS: PLATELET COUNT (AUTO) 197 K/uL (150-450); RED BLOOD CELL COUNT(AUTO) 3.03 MIL/uL (4.0-5.2); RED CELL DISTRIBUTION WIDTH 15.5 % (11.5-15.0); WHITE BLOOD COUNT (AUTO) 15.8 K/uL (4.3-11.0)
[2025-09-27 04:39] LABS: CALCIUM, SERUM 9.0 mg/dL (8.5-10.1); CREATININE 0.5 mg/dL (0.6-1.3); PHOSPHORUS 1.1 mg/dL (2.5-4.9); UREA NITROGEN, BLOOD 66.0 mg/dL (7-18)
[2025-09-27 04:54] LABS: SODIUM SERUM 146.0 mmol/L (136-145)
[2025-09-27] MEDS: IV NS 0.9% 1,000 ML IV PRN (08:24)
[2025-09-27 08:43] LABS: ABG BASE EXCESS 17.5 mmol/L (-2.0-3.0); ABG OXYGEN SATURATION 95.7 % (94.0-98.0); ABG PCO2 59.2 mmHg (32.0-45.0); ABG PH 7.483 (7.350-7.450); ABG PO2 74.1 mmHg (83.0-108.0); ABG TOTAL HEMOGLOBIN 10.2 G/dL (12.0-16.0); FRACTIONATED INSPIRED OXYGEN 50.0 %; PEEP,BG 5 cm H2O; SET RATE, BG 14.0; SITE, ABG RIGHT RADIAL; VT, ABG 400 mL
[2025-09-27] MEDS: PROPOFOL 50 ML IV PRN (09:39)
[2025-09-27] MEDS: Sodium Phosphate 30 MMOL in IV NS 0.9% 250 ML IV SCH (09:47)
[2025-09-28] VITALS (62 sets, daily range): BP systolic 101–129; BP diastolic 35–50; TEMP 97.6–98.5; O2SAT 82–100
[2025-09-28 04:55] LABS: PLATELET COUNT (AUTO) 173 K/uL (150-450); RED BLOOD CELL COUNT(AUTO) 2.87 MIL/uL (4.0-5.2); RED CELL DISTRIBUTION WIDTH 15.4 % (11.5-15.0); WHITE BLOOD COUNT (AUTO) 12.8 K/uL (4.3-11.0)
[2025-09-28 05:06] LABS: ASPARTATE AMINOTRANSFERASE 45 U/L (15-37); CALCIUM, SERUM 8.1 mg/dL (8.5-10.1); CREATININE 0.4 mg/dL (0.6-1.3); PHOSPHORUS 2.5 mg/dL (2.5-4.9); TOTAL PROTEIN, SERUM 6.0 g/dL (6.4-8.2); UREA NITROGEN, BLOOD 58 mg/dL (7-18)
[2025-09-28 05:16] LABS: SODIUM SERUM 146 mmol/L (136-145)
[2025-09-28 08:52] LABS: ABG BASE EXCESS 14.9 mmol/L (-2.0-3.0); ABG OXYGEN SATURATION 94.6 % (94.0-98.0); ABG PCO2 67.0 mmHg (32.0-45.0); ABG PH 7.421 (7.350-7.450); ABG PO2 72.8 mmHg (83.0-108.0); ABG TOTAL HEMOGLOBIN 13.3 G/dL (12.0-16.0); FRACTIONATED INSPIRED OXYGEN 40.0 %; PEEP,BG 5 cm H2O; SET RATE, BG 14.0; SITE, ABG RIGHT RADIAL; VT, ABG 400 mL
[2025-09-28] MEDS: PROPOFOL 100 ML IV PRN (09:01)
[2025-09-28] MEDS: POTASSIUM CHLORIDE 20 MEQ POWDER PACKET GT ONE (09:39)
[2025-09-29] VITALS (64 sets, daily range): BP systolic 108–143; BP diastolic 36–100; TEMP 97.6–98.1; O2SAT 77–100
[2025-09-29 04:45] LABS: PLATELET COUNT (AUTO) 182 K/uL (150-450); RED BLOOD CELL COUNT(AUTO) 2.88 MIL/uL (4.0-5.2); RED CELL DISTRIBUTION WIDTH 14.9 % (11.5-15.0); WHITE BLOOD COUNT (AUTO) 9.2 K/uL (4.3-11.0)
[2025-09-29 04:54] LABS: CALCIUM, SERUM 8.8 mg/dL (8.5-10.1); CREATININE 0.3 mg/dL (0.6-1.3); PHOSPHORUS 2.2 mg/dL (2.5-4.9); UREA NITROGEN, BLOOD 65.0 mg/dL (7-18)
[2025-09-29 04:56] LABS: INR 1.07 (0.91-1.10)
[2025-09-29 05:00] LABS: SODIUM SERUM 147.0 mmol/L (136-145)
[2025-09-29] MEDS: POTASSIUM PHOSPHATE MM 5 MMOL in IV NS 0.9% 100 ML IV SCH (08:55)
[2025-09-29] MEDS ORDERED: POTASSIUM PHOSPHATE MM 15 MMOL in IV NS 0.9% 250 ML IV SCH (09:00)
[2025-09-29 10:39] LABS: ABG BASE EXCESS 19.1 mmol/L (-2.0-3.0); ABG OXYGEN SATURATION 94.8 % (94.0-98.0); ABG PCO2 63.1 mmHg (32.0-45.0); ABG PH 7.475 (7.350-7.450); ABG PO2 71.3 mmHg (83.0-108.0); ABG TOTAL HEMOGLOBIN 10.2 G/dL (12.0-16.0); FRACTIONATED INSPIRED OXYGEN 40.0 %; PEEP,BG 5 cm H2O; SET RATE, BG 14.0; SITE, ABG RIGHT RADIAL; VT, ABG 400 mL
[2025-09-29] MEDS: PROSOURCE / PROSTAT (PYXIS) 30 ML UDC GT SCH (14:08)
[2025-09-29] MEDS: NEUTRA PHOS 1 POWD.PACKET PO ONE (17:19)
[2025-09-29 18:16] LABS: ABG BASE EXCESS 13.4 mmol/L (-2.0-3.0); ABG OXYGEN SATURATION 99.5 % (94.0-98.0); ABG PCO2 48.0 mmHg (32.0-45.0); ABG PH 7.515 (7.350-7.450); ABG PO2 262.0 mmHg (83.0-108.0); ABG TOTAL HEMOGLOBIN 9.9 G/dL (12.0-16.0); FRACTIONATED INSPIRED OXYGEN 100.0 %; PEEP,BG 10 cm H2O; SET RATE, BG 14.0; SITE, ABG RIGHT RADIAL; VT, ABG 500 mL
[2025-09-30] VITALS (68 sets, daily range): BP systolic 110–149; BP diastolic 38–57; TEMP 97.9–98.8; O2SAT 70–100
[2025-09-30 04:43] LABS: PLATELET COUNT (AUTO) 189 K/uL (150-450); RED BLOOD CELL COUNT(AUTO) 3.12 MIL/uL (4.0-5.2); RED CELL DISTRIBUTION WIDTH 15.0 % (11.5-15.0); WHITE BLOOD COUNT (AUTO) 9.7 K/uL (4.3-11.0)
[2025-09-30 05:01] LABS: CALCIUM, SERUM 8.9 mg/dL (8.5-10.1); CREATININE 0.3 mg/dL (0.6-1.3); PHOSPHORUS 2.9 mg/dL (2.5-4.9); UREA NITROGEN, BLOOD 62.0 mg/dL (7-18)
[2025-09-30 05:05] LABS: SODIUM SERUM 147.0 mmol/L (136-145)
[2025-09-30] MEDS: VECURONIUM 10 MG VIAL IV PRN (09:11)
[2025-09-30] MEDS: MIDAZOLAM HCL 2 MG/2ML VIAL IV PRN (09:12)
[2025-09-30] MEDS: FENTANYL PF 100MCG/2ML AMPUL IV PRN (09:12)
[2025-09-30] MEDS ORDERED: VECURONIUM 10 MG VIAL IV ONE (16:05)
[2025-10-01] VITALS (35 sets, daily range): BP systolic 124–162; BP diastolic 43–87; TEMP 97.9–98.5; O2SAT 94–100
[2025-10-01] MEDS: POTASSIUM CHLORIDE 20 MEQ POWDER PACKET NG SCH (08:23)
[2025-10-01] MEDS: METOPROLOL TARTRATE 25 MG TABLET PO SCH (08:24)
[2025-10-01] MEDS: AMIODARONE HCL 200 MG TABLET PO SCH (08:25)
[2025-10-01] MEDS: BUMETANIDE INJ 8 MG in IV NS 0.9% 48 ML IV ONE (08:58)
[2025-10-01 09:58] LABS: ABG BASE EXCESS 17.0 mmol/L (-2.0-3.0); ABG OXYGEN SATURATION 96.6 % (94.0-98.0); ABG PCO2 46.3 mmHg (32.0-45.0); ABG PH 7.565 (7.350-7.450); ABG PO2 85.0 mmHg (83.0-108.0); ABG TOTAL HEMOGLOBIN 10.7 G/dL (12.0-16.0); FRACTIONATED INSPIRED OXYGEN 40.0 %; PEEP,BG 5 cm H2O; SET RATE, BG 4.0; SITE, ABG RIGHT RADIAL; VT, ABG 450 mL
[2025-10-01] MEDS: FREE WATER VIA TUBE FEEDING GT SCH (12:56)
[2025-10-01] MEDS: SULFAMETH/TRIMETH 800/160 MG 1 UDTAB TABLET PO SCH (21:16)
[2025-10-02] VITALS (7 sets, daily range): BP systolic 126–177; BP diastolic 45–72; TEMP 97.6–99.1; O2SAT 95–98
[2025-10-02 07:37] LABS: PLATELET COUNT (AUTO) 189 K/uL (150-450); RED BLOOD CELL COUNT(AUTO) 3.15 MIL/uL (4.0-5.2); RED CELL DISTRIBUTION WIDTH 15.1 % (11.5-15.0); WHITE BLOOD COUNT (AUTO) 15.3 K/uL (4.3-11.0)
[2025-10-02 08:07] LABS: ASPARTATE AMINOTRANSFERASE 83.0 U/L (15-37); CALCIUM, SERUM 8.1 mg/dL (8.5-10.1); CREATININE 0.3 mg/dL (0.6-1.3); PHOSPHORUS 2.9 mg/dL (2.5-4.9); SODIUM SERUM 148.0 mmol/L (136-145); TOTAL PROTEIN, SERUM 6.3 g/dL (6.4-8.2); UREA NITROGEN, BLOOD 36.0 mg/dL (7-18)
[2025-10-02] MEDS: POTASSIUM CL. PREMIX PERIPHER. 50 ML IV SCH (08:50)
[2025-10-02] MEDS ORDERED: POTASSIUM CHLORIDE 20 MEQ POWDER PACKET GT ONE (09:00)
[2025-10-03] VITALS: BP 146/61; TEMP 98.1; O2SAT 97
[2025-10-03 04:00] VITALS: BP 145/65; TEMP 98.3; O2SAT 97
[2025-10-03 08:00] VITALS: BP 146/49; TEMP 99.5; O2SAT 99
[2025-10-03 12:00] VITALS: BP 134/53; TEMP 99.9; O2SAT 98
[2025-10-03] MEDS: MORPHINE SULFATE INJ 2 MG/ML DISP.SYRIN IV PRN (12:40)
[2025-10-03 12:44] LABS: PLATELET COUNT (AUTO) 217 K/uL (150-450); RED BLOOD CELL COUNT(AUTO) 3.04 MIL/uL (4.0-5.2); RED CELL DISTRIBUTION WIDTH 15.4 % (11.5-15.0); WHITE BLOOD COUNT (AUTO) 13.7 K/uL (4.3-11.0)
[2025-10-03 12:55] LABS: CALCIUM, SERUM 8.3 mg/dL (8.5-10.1); CREATININE 0.4 mg/dL (0.6-1.3); SODIUM SERUM 148.0 mmol/L (136-145); UREA NITROGEN, BLOOD 43.0 mg/dL (7-18)
[2025-10-03] MEDS: POTASSIUM CHLORIDE 20 MEQ POWDER PACKET NG SCH (14:47)
[2025-10-03] MEDS ORDERED: POTASSIUM CHLORIDE 20 MEQ POWDER PACKET GT SCH (15:30)
[2025-10-03 16:00] VITALS: BP 143/50; TEMP 99; O2SAT 95
[2025-10-03 20:00] VITALS: BP 125/51; TEMP 99.3; O2SAT 95
[2025-10-04] VITALS: BP 133/54; TEMP 99; O2SAT 95
[2025-10-04 04:00] VITALS: BP 129/58; TEMP 98.8; O2SAT 96
[2025-10-04 08:00] VITALS: BP 141/41; TEMP 97.6; O2SAT 96
[2025-10-04 11:52] LABS: PLATELET COUNT (AUTO) 203 K/uL (150-450); RED BLOOD CELL COUNT(AUTO) 2.93 MIL/uL (4.0-5.2); RED CELL DISTRIBUTION WIDTH 15.7 % (11.5-15.0); WHITE BLOOD COUNT (AUTO) 12.7 K/uL (4.3-11.0)
[2025-10-04 12:00] VITALS: BP 115/44; TEMP 97.7; O2SAT 96
[2025-10-04 12:08] LABS: ASPARTATE AMINOTRANSFERASE 53.0 U/L (15-37); CALCIUM, SERUM 8.2 mg/dL (8.5-10.1); CREATININE 0.3 mg/dL (0.6-1.3); PHOSPHORUS 2.4 mg/dL (2.5-4.9); SODIUM SERUM 149.0 mmol/L (136-145); TOTAL PROTEIN, SERUM 6.0 g/dL (6.4-8.2); UREA NITROGEN, BLOOD 45.0 mg/dL (7-18)
[2025-10-04] MEDS: acetaZOLAMIDE SODIUM 500 MG/VIAL VIAL IV ONE (13:37)
[2025-10-04 16:00] VITALS: BP 141/50; TEMP 97.9; O2SAT 98
[2025-10-04] MEDS: NEUTRA PHOS 1 POWD.PACKET NG ONE (17:14)
[2025-10-04 20:00] VITALS: BP 138/53; TEMP 98.6; O2SAT 98
[2025-10-05] VITALS (8 sets, daily range): BP systolic 117–139; BP diastolic 41–53; TEMP 97.3–98.6; O2SAT 94–98
[2025-10-05 09:50] LABS: ABG BASE EXCESS 2.9 mmol/L (-2.0-3.0); ABG OXYGEN SATURATION 95.8 % (94.0-98.0); ABG PCO2 63.7 mmHg (32.0-45.0); ABG PH 7.300 (7.350-7.450); ABG PO2 93.2 mmHg (83.0-108.0); ABG TOTAL HEMOGLOBIN 11.4 G/dL (12.0-16.0); FLOW, BLOOD GAS 10.00 L/min (0.00-30.00); FRACTIONATED INSPIRED OXYGEN 40.0 %; SITE, ABG RIGHT RADIAL
[2025-10-05] MEDS: POTASSIUM CL. PREMIX PERIPHER. 50 ML IV SCH (10:19)
[2025-10-05 11:54] LABS: PLATELET COUNT (AUTO) 331 K/uL (150-450); RED BLOOD CELL COUNT(AUTO) 3.43 MIL/uL (4.0-5.2); RED CELL DISTRIBUTION WIDTH 15.7 % (11.5-15.0); WHITE BLOOD COUNT (AUTO) 16.1 K/uL (4.3-11.0)
[2025-10-05 12:08] LABS: PHOSPHORUS 4.3 mg/dL (2.5-4.9)
[2025-10-06] VITALS: BP 116/49; TEMP 97.7; O2SAT 99
[2025-10-06 04:00] VITALS: BP 126/49; TEMP 97.9; O2SAT 98
[2025-10-06 08:00] VITALS: BP 133/49; TEMP 99; O2SAT 98
[2025-10-06 08:41] LABS: PLATELET COUNT (AUTO) 218 K/uL (150-450); RED BLOOD CELL COUNT(AUTO) 2.94 MIL/uL (4.0-5.2); RED CELL DISTRIBUTION WIDTH 15.2 % (11.5-15.0); WHITE BLOOD COUNT (AUTO) 12.1 K/uL (4.3-11.0)
[2025-10-06 09:01] LABS: ASPARTATE AMINOTRANSFERASE 45.0 U/L (15-37); CALCIUM, SERUM 8.1 mg/dL (8.5-10.1); CREATININE 0.3 mg/dL (0.6-1.3); PHOSPHORUS 2.5 mg/dL (2.5-4.9); SODIUM SERUM 138.0 mmol/L (136-145); TOTAL PROTEIN, SERUM 6.4 g/dL (6.4-8.2); UREA NITROGEN, BLOOD 46.0 mg/dL (7-18)
[2025-10-06] MEDS: BUMETANIDE INJ 16 MG in IV NS 0.9% 16 ML IV ONE (09:57)
[2025-10-06 12:00] VITALS: BP 144/47; TEMP 98.4; O2SAT 98
[2025-10-06 16:00] VITALS: BP 131/46; TEMP 98; O2SAT 98
[2025-10-06 20:00] VITALS: BP 127/43; TEMP 97.9; O2SAT 97
[2025-10-07] VITALS: BP 123/42; TEMP 97.9; O2SAT 97
[2025-10-07 04:00] VITALS: BP 130/45; TEMP 98; O2SAT 97
[2025-10-07 08:00] VITALS: BP 149/45; TEMP 98.8; O2SAT 94
[2025-10-07 08:05] LABS: PLATELET COUNT (AUTO) 241 K/uL (150-450); RED BLOOD CELL COUNT(AUTO) 3.09 MIL/uL (4.0-5.2); RED CELL DISTRIBUTION WIDTH 15.3 % (11.5-15.0); WHITE BLOOD COUNT (AUTO) 12.5 K/uL (4.3-11.0)
[2025-10-07] MEDS: LACTULOSE 10 G/15 ML UDC (PYXIS) GT ONE (08:12)
[2025-10-07 08:38] LABS: ASPARTATE AMINOTRANSFERASE 43.0 U/L (15-37); CALCIUM, SERUM 8.1 mg/dL (8.5-10.1); CREATININE 0.4 mg/dL (0.6-1.3); PHOSPHORUS 2.4 mg/dL (2.5-4.9); TOTAL PROTEIN, SERUM 6.6 g/dL (6.4-8.2); UREA NITROGEN, BLOOD 47.0 mg/dL (7-18)
[2025-10-07 08:48] LABS: SODIUM SERUM 145.0 mmol/L (136-145)
[2025-10-07] MEDS: DOCUSATE SODIUM LIQ 100 MG/10 ML UDC GT SCH (11:06)
[2025-10-07] MEDS: POTASSIUM CHLORIDE 20 MEQ POWDER PACKET GT ONE ×2 (11:26→18:36)
[2025-10-07] MEDS: NEUTRA PHOS 1 POWD.PACKET NG ONE (15:38)
[2025-10-07] MEDS: POTASSIUM CHLORIDE 20 MEQ POWDER PACKET GT SCH (15:55)
[2025-10-07 20:00] VITALS: BP 143/46; TEMP 98.1; O2SAT 97
[2025-10-08] VITALS: BP 141/43; TEMP 97.9; O2SAT 98
[2025-10-08 04:00] VITALS: BP 134/40; TEMP 97.9; O2SAT 95
[2025-10-08 08:00] VITALS: BP 130/54; TEMP 98.2; O2SAT 97
[2025-10-08 12:00] VITALS: BP 150/47; TEMP 98.2; O2SAT 96
[2025-10-08 16:00] VITALS: BP 166/63; TEMP 98.1; O2SAT 96
[2025-10-08 20:00] VITALS: BP 138/58; TEMP 98.6; O2SAT 98
[2025-10-09] VITALS: BP 135/70; TEMP 97.9; O2SAT 98
[2025-10-09 04:00] VITALS: BP 133/60; TEMP 97.9; O2SAT 98
[2025-10-09 08:00] VITALS: BP 123/61; TEMP 98.3; O2SAT 98
[2025-10-09 08:54] LABS: CALCIUM, SERUM 8.4 mg/dL (8.5-10.1); CREATININE 0.3 mg/dL (0.6-1.3); SODIUM SERUM 138.0 mmol/L (136-145); UREA NITROGEN, BLOOD 30.0 mg/dL (7-18)
[2025-10-09 12:00] VITALS: BP 119/54; TEMP 98.9; O2SAT 98
[2025-10-09 16:00] VITALS: BP 122/44; TEMP 98.5; O2SAT 99
[2025-10-09 20:00] VITALS: BP 123/47; TEMP 97.7; O2SAT 96
[2025-10-10] VITALS: BP 134/46; TEMP 97.5; O2SAT 98
[2025-10-10 04:00] VITALS: BP 130/51; TEMP 97.7; O2SAT 100
[2025-10-10 09:00] VITALS: BP 134/44; TEMP 98.2; O2SAT 100
[2025-10-10 13:11] VITALS: BP 126/45; TEMP 97.7; O2SAT 100
[2025-10-10 16:05] VITALS: BP 126/45; TEMP 97.7; O2SAT 100
[2025-10-10 20:00] VITALS: BP 133/53; TEMP 98.4; O2SAT 100
[2025-10-11] VITALS: BP 132/48; TEMP 98.4; O2SAT 100
[2025-10-11 04:00] VITALS: BP 155/56; TEMP 98.4; O2SAT 98
[2025-10-11 09:00] VITALS: BP 142/48; TEMP 97.6; O2SAT 98
[2025-10-11 13:00] VITALS: BP 132/55; TEMP 98.4; O2SAT 98
[2025-10-11 16:38] VITALS: BP 150/42; TEMP 98.1; O2SAT 98
[2025-10-11 20:00] VITALS: BP 123/47; TEMP 97.5; O2SAT 98
[2025-10-12] VITALS: BP 124/54; TEMP 97.9; O2SAT 98
[2025-10-12 04:00] VITALS: BP 132/56; TEMP 98.2; O2SAT 98
[2025-10-12 09:00] VITALS: BP 122/40; TEMP 98.2
[2025-10-12 13:53] VITALS: BP 122/42; TEMP 98.1; O2SAT 99
[2025-10-12 16:52] VITALS: BP 126/66; TEMP 98; O2SAT 100
[2025-10-12 20:00] VITALS: BP 128/49; TEMP 97.9; O2SAT 99
[2025-10-13] VITALS: BP 126/46; TEMP 97.7; O2SAT 100
[2025-10-13 04:00] VITALS: BP 138/55; TEMP 97.5; O2SAT 100
[2025-10-13 07:26] LABS: PLATELET COUNT (AUTO) 251 K/uL (150-450); RED BLOOD CELL COUNT(AUTO) 3.08 MIL/uL (4.0-5.2); RED CELL DISTRIBUTION WIDTH 16.3 % (11.5-15.0); WHITE BLOOD COUNT (AUTO) 11.1 K/uL (4.3-11.0)
[2025-10-13 08:00] VITALS: BP 141/50; TEMP 98.4; O2SAT 100
[2025-10-13 08:00] LABS: ASPARTATE AMINOTRANSFERASE 30.0 U/L (15-37); CALCIUM, SERUM 8.2 mg/dL (8.5-10.1); CREATININE 0.3 mg/dL (0.6-1.3); PHOSPHORUS 2.9 mg/dL (2.5-4.9); SODIUM SERUM 138.0 mmol/L (136-145); TOTAL PROTEIN, SERUM 6.5 g/dL (6.4-8.2); UREA NITROGEN, BLOOD 24.0 mg/dL (7-18)
[2025-10-13 12:00] VITALS: BP 123/41; TEMP 98.4; O2SAT 100
[2025-10-13] MEDS: POTASSIUM CHLORIDE 20 MEQ POWDER PACKET GT ONE ×2 (13:00→18:30)
[2025-10-13 16:00] VITALS: BP 140/56; TEMP 98.4; O2SAT 100
[2025-10-13 20:00] VITALS: BP 134/53; TEMP 98.2; O2SAT 99
[2025-10-14] VITALS: BP 143/56; TEMP 99.1; O2SAT 99
[2025-10-14 04:00] VITALS: BP 155/65; TEMP 98.8; O2SAT 95
[2025-10-14 07:24] LABS: CALCIUM, SERUM 8.6 mg/dL (8.5-10.1); CREATININE 0.3 mg/dL (0.6-1.3); PHOSPHORUS 2.5 mg/dL (2.5-4.9); SODIUM SERUM 136.0 mmol/L (136-145); UREA NITROGEN, BLOOD 26.0 mg/dL (7-18)
[2025-10-14 08:00] VITALS: BP 140/53; TEMP 98.8; O2SAT 97
[2025-10-14 12:00] VITALS: BP 146/55; TEMP 98.1; O2SAT 98
[2025-10-14 16:00] VITALS: BP 149/45; TEMP 98.1; O2SAT 99
[2025-10-14 20:00] VITALS: BP 128/53; TEMP 98.4; O2SAT 98
[2025-10-15] VITALS: BP 122/47; TEMP 97.9; O2SAT 99
[2025-10-15 04:00] VITALS: BP 149/70; TEMP 98.7; O2SAT 98
[2025-10-15 08:00] VITALS: BP 149/65; TEMP 98.4; O2SAT 100
[2025-10-15 12:00] VITALS: BP 135/53; TEMP 98.4; O2SAT 98
[2025-10-15 16:00] VITALS: BP 138/50; TEMP 97.9; O2SAT 99
[2025-10-15 20:00] VITALS: BP 138/56; TEMP 97.9; O2SAT 100
[2025-10-16] VITALS: BP 132/51; TEMP 97.7; O2SAT 99
[2025-10-16 04:00] VITALS: BP 138/58; TEMP 97.7; O2SAT 97
[2025-10-16 08:00] VITALS: BP 147/50; TEMP 97.7; O2SAT 97
[2025-10-16 12:00] VITALS: BP 146/52; TEMP 97.7; O2SAT 96
[2025-10-16 15:59] LABS: ABG BASE EXCESS 4.9 mmol/L (-2.0-3.0); ABG OXYGEN SATURATION 97.1 % (94.0-98.0); ABG PCO2 39.3 mmHg (32.0-45.0); ABG PH 7.481 (7.350-7.450); ABG PO2 89.0 mmHg (83.0-108.0); ABG TOTAL HEMOGLOBIN 10.6 G/dL (12.0-16.0); FRACTIONATED INSPIRED OXYGEN 40.0 %; SITE, ABG RIGHT RADIAL
[2025-10-16 16:00] VITALS: BP 144/52; TEMP 97; O2SAT 97
[2025-10-16 20:00] VITALS: BP 145/46; TEMP 98; O2SAT 99
[2025-10-17] VITALS: BP 140/49; TEMP 97.8; O2SAT 99
[2025-10-17 04:00] VITALS: BP 143/48; TEMP 97.9; O2SAT 98
[2025-10-17 08:00] VITALS: BP 147/61; TEMP 99.1; O2SAT 97
[2025-10-17 11:10] LABS: PLATELET COUNT (AUTO) 221 K/uL (150-450); RED BLOOD CELL COUNT(AUTO) 3.37 MIL/uL (4.0-5.2); RED CELL DISTRIBUTION WIDTH 16.8 % (11.5-15.0); WHITE BLOOD COUNT (AUTO) 13.8 K/uL (4.3-11.0)
[2025-10-17 12:00] VITALS: BP 144/56; TEMP 97.3; O2SAT 97
[2025-10-17 16:00] VITALS: BP 157/70; TEMP 97.3; O2SAT 97
[2025-10-17 20:00] VITALS: BP 151/58; TEMP 97.5; O2SAT 100
[2025-10-18] VITALS (7 sets, daily range): BP systolic 118–155; BP diastolic 46–80; TEMP 97.5–97.9; O2SAT 92–100
[2025-10-18] MEDS: HYDROCODONE/APAP 5/325MG TABLET GT PRN (08:56)
[2025-10-18 10:30] LABS: PLATELET COUNT (AUTO) 197 K/uL (150-450); RED BLOOD CELL COUNT(AUTO) 3.02 MIL/uL (4.0-5.2); RED CELL DISTRIBUTION WIDTH 16.1 % (11.5-15.0); WHITE BLOOD COUNT (AUTO) 10.1 K/uL (4.3-11.0)
[2025-10-18 10:36] LABS: CALCIUM, SERUM 8.0 mg/dL (8.5-10.1); CREATININE 0.3 mg/dL (0.6-1.3); SODIUM SERUM 134.0 mmol/L (136-145); UREA NITROGEN, BLOOD 27.0 mg/dL (7-18)
[2025-10-18] MEDS: POTASSIUM CHLORIDE 20 MEQ POWDER PACKET GT ONE (14:09)
[2025-10-19] VITALS: BP 131/55; TEMP 97.9; O2SAT 94
[2025-10-19 04:00] VITALS: BP 128/72; TEMP 97.6; O2SAT 96
[2025-10-19 08:00] VITALS: BP 128/72; TEMP 97.6; O2SAT 96
[2025-10-19 09:02] LABS: CALCIUM, SERUM 8.1 mg/dL (8.5-10.1); CREATININE 0.2 mg/dL (0.6-1.3); SODIUM SERUM 133.0 mmol/L (136-145); UREA NITROGEN, BLOOD 24.0 mg/dL (7-18)
[2025-10-19 12:00] VITALS: BP 140/60; TEMP 97.8; O2SAT 96
[2025-10-19 12:03] LABS: ABG BASE EXCESS 5.9 mmol/L (-2.0-3.0); ABG OXYGEN SATURATION 99.0 % (94.0-98.0); ABG PCO2 37.6 mmHg (32.0-45.0); ABG PH 7.509 (7.350-7.450); ABG PO2 130.4 mmHg (83.0-108.0); ABG TOTAL HEMOGLOBIN 10.4 G/dL (12.0-16.0); FRACTIONATED INSPIRED OXYGEN 100.0 %; PEEP,BG 5 cm H2O; SET RATE, BG 12.0; SITE, ABG RIGHT RADIAL; VT, ABG 450 mL
[2025-10-19 16:00] VITALS: BP 137/60; TEMP 97.8; O2SAT 96
[2025-10-19 20:00] VITALS: BP 145/76; TEMP 98.4; O2SAT 90
[2025-10-20] VITALS: BP 143/66; TEMP 98.1; O2SAT 93
[2025-10-20 00:46] LABS: ABG BASE EXCESS 5.3 mmol/L (-2.0-3.0); ABG OXYGEN SATURATION 98.4 % (94.0-98.0); ABG PCO2 36.1 mmHg (32.0-45.0); ABG PH 7.514 (7.350-7.450); ABG PO2 108.7 mmHg (83.0-108.0); ABG TOTAL HEMOGLOBIN 10.5 G/dL (12.0-16.0); FRACTIONATED INSPIRED OXYGEN 100.0 %; SET RATE, BG 12.0; SITE, ABG RIGHT RADIAL; VT, ABG 450 mL
[2025-10-20 04:00] VITALS: BP 132/63; TEMP 99.1; O2SAT 97
[2025-10-20] MEDS: acetaZOLAMIDE SODIUM 500 MG/VIAL VIAL IV ONE (07:55)
[2025-10-20 08:00] VITALS: BP 141/67; TEMP 98.6; O2SAT 97
[2025-10-20 12:00] VITALS: BP 136/51; TEMP 98; O2SAT 96
[2025-10-20] MEDS: FREE WATER VIA TUBE FEEDING GT SCH (12:31)
[2025-10-20 16:00] VITALS: BP 131/93; TEMP 98.2; O2SAT 98
[2025-10-20] MEDS: PIPERACILLIN /TAZOBACTAM 3.375 G in IV D5W 50 ML IV SCH (17:09)
[2025-10-20 20:00] VITALS: BP 120/93; TEMP 99.5; O2SAT 98
[2025-10-21] VITALS: BP 125/48; TEMP 100; O2SAT 97
[2025-10-21 04:00] VITALS: BP 137/51; TEMP 98.8; O2SAT 97
[2025-10-21 08:00] VITALS: BP 140/43; TEMP 99.7; O2SAT 95
[2025-10-21] MEDS: acetaZOLAMIDE SODIUM 500 MG/VIAL VIAL IV ONE (08:37)
[2025-10-21 12:00] VITALS: BP 111/40; TEMP 98.2; O2SAT 98
[2025-10-21 16:01] VITALS: BP 130/54; TEMP 97.7; O2SAT 99
[2025-10-21 20:00] VITALS: BP 121/49; TEMP 98.8; O2SAT 98
[2025-10-22] VITALS: BP 120/48; TEMP 99.3; O2SAT 98
[2025-10-22 04:00] VITALS: BP 129/45; TEMP 99.5; O2SAT 98
[2025-10-22 08:00] VITALS: BP 120/56; TEMP 98.1; O2SAT 99
[2025-10-22 08:12] LABS: PLATELET COUNT (AUTO) 186 K/uL (150-450); RED BLOOD CELL COUNT(AUTO) 3.25 MIL/uL (4.0-5.2); RED CELL DISTRIBUTION WIDTH 16.2 % (11.5-15.0); WHITE BLOOD COUNT (AUTO) 14.5 K/uL (4.3-11.0)
[2025-10-22 08:46] LABS: CALCIUM, SERUM 8.2 mg/dL (8.5-10.1); CREATININE 0.3 mg/dL (0.6-1.3); SODIUM SERUM 138.0 mmol/L (136-145); UREA NITROGEN, BLOOD 33.0 mg/dL (7-18)
[2025-10-22] MEDS: METOPROLOL TARTRATE 25 MG TABLET PO SCH (08:55)
[2025-10-22] MEDS: APIXABAN 5 MG TABLET PO SCH (08:58)
[2025-10-22] MEDS: POTASSIUM CHLORIDE 20 MEQ POWDER PACKET GT ONE (11:07)
[2025-10-22 12:00] VITALS: BP 132/50; TEMP 97.7; O2SAT 96
[2025-10-22 16:00] VITALS: BP 131/50; TEMP 97.9; O2SAT 97
[2025-10-22 20:00] VITALS: BP 136/55; TEMP 97.5; O2SAT 98
[2025-10-23] VITALS: BP 136/55; TEMP 97.5; O2SAT 98
[2025-10-23 04:00] VITALS: BP 130/63; TEMP 97.3; O2SAT 96
[2025-10-23 07:40] LABS: CALCIUM, SERUM 8.5 mg/dL (8.5-10.1); CREATININE 0.4 mg/dL (0.6-1.3); PHOSPHORUS 3.1 mg/dL (2.5-4.9); SODIUM SERUM 140.0 mmol/L (136-145); UREA NITROGEN, BLOOD 36.0 mg/dL (7-18)
[2025-10-23 08:00] VITALS: BP 131/43; TEMP 97.6; O2SAT 100
[2025-10-23 12:00] VITALS: BP 118/41; TEMP 98.5; O2SAT 100
[2025-10-23 16:00] VITALS: BP 130/51; TEMP 98.1; O2SAT 98
[2025-10-23 20:00] VITALS: BP 116/38; TEMP 98.1; O2SAT 98
[2025-10-24] VITALS: BP 120/42; TEMP 98.2; O2SAT 98
[2025-10-24 04:00] VITALS: BP 135/53; TEMP 98.4; O2SAT 97
[2025-10-24 08:00] VITALS: BP 141/56; TEMP 98.6; O2SAT 98
[2025-10-24 12:00] VITALS: BP 129/54; TEMP 98.2; O2SAT 98
[2025-10-24 16:00] VITALS: BP 135/45; TEMP 97.7; O2SAT 96
[2025-10-24 20:00] VITALS: BP 154/56; TEMP 98.3; O2SAT 97
[2025-10-25] VITALS: BP 119/60; TEMP 98.2; O2SAT 97
[2025-10-25 04:00] VITALS: BP 113/59; TEMP 98.4; O2SAT 97
[2025-10-25 08:00] VITALS: BP 152/60; TEMP 98.3; O2SAT 97
[2025-10-25 08:06] LABS: PLATELET COUNT (AUTO) 278 K/uL (150-450); RED BLOOD CELL COUNT(AUTO) 3.27 MIL/uL (4.0-5.2); RED CELL DISTRIBUTION WIDTH 16.7 % (11.5-15.0); WHITE BLOOD COUNT (AUTO) 12.0 K/uL (4.3-11.0)
[2025-10-25 08:38] LABS: CALCIUM, SERUM 8.2 mg/dL (8.5-10.1); CREATININE 0.2 mg/dL (0.6-1.3); PHOSPHORUS 2.4 mg/dL (2.5-4.9); SODIUM SERUM 139.0 mmol/L (136-145); UREA NITROGEN, BLOOD 29.0 mg/dL (7-18)
[2025-10-25] MEDS: NEUTRA PHOS 1 POWD.PACKET GT ONE (11:44)
[2025-10-25 12:00] VITALS: BP 128/46; TEMP 97.9; O2SAT 97
[2025-10-25 16:00] VITALS: BP 144/59; TEMP 96.9; O2SAT 98
[2025-10-25] MEDS: CHLORHEXIDINE GLUCONATE 15 ML UDC MM SCH (18:07)
[2025-10-25] MEDS: LACTULOSE 10 G/15 ML UDC (PYXIS) PO ONE (18:08)
[2025-10-25 20:00] VITALS: BP 138/47; TEMP 97.9; O2SAT 100
[2025-10-26] VITALS: BP 149/52; TEMP 97.9; O2SAT 99
[2025-10-26 04:00] VITALS: BP 157/51; TEMP 98.6; O2SAT 100
[2025-10-26 08:00] VITALS: BP 146/50; TEMP 97.7; O2SAT 100
[2025-10-26 10:09] LABS: PLATELET COUNT (AUTO) 246 K/uL (150-450); RED BLOOD CELL COUNT(AUTO) 3.02 MIL/uL (4.0-5.2); RED CELL DISTRIBUTION WIDTH 16.3 % (11.5-15.0); WHITE BLOOD COUNT (AUTO) 14.0 K/uL (4.3-11.0)
[2025-10-26 10:23] LABS: CALCIUM, SERUM 7.8 mg/dL (8.5-10.1); CREATININE 0.2 mg/dL (0.6-1.3); SODIUM SERUM 140.0 mmol/L (136-145); UREA NITROGEN, BLOOD 24.0 mg/dL (7-18)
[2025-10-26 12:00] VITALS: BP 127/44; TEMP 97.5; O2SAT 100
[2025-10-26] MEDS: PIPERACILLIN /TAZOBACTAM 3.375 G in IV D5W 100 ML IV SCH (13:52)
[2025-10-26 16:00] VITALS: BP 128/47; TEMP 97.7; O2SAT 100
[2025-10-26] MEDS: NEUTRA PHOS 1 POWD.PACKET NG ONE (16:59)
[2025-10-26 20:00] VITALS: BP 115/50; TEMP 97.3; O2SAT 98
[2025-10-27] VITALS (8 sets, daily range): BP systolic 115–165; BP diastolic 50–88; TEMP 97.5–98; O2SAT 96–98
[2025-10-27] MEDS: POTASSIUM CHLORIDE 20 MEQ POWDER PACKET GT SCH (10:53)
[2025-10-27] MEDS: FUROSEMIDE 40 MG/4 ML VIAL IV SCH (12:31)
[2025-10-27] MEDS: MORPHINE SULFATE INJ 2 MG/ML DISP.SYRIN IV ONE (16:47)
[2025-10-28] VITALS: BP 148/41; TEMP 98.1; O2SAT 100
[2025-10-28 04:00] VITALS: BP 143/49; TEMP 98.6; O2SAT 98
[2025-10-28 06:54] LABS: PLATELET COUNT (AUTO) 341 K/uL (150-450); RED BLOOD CELL COUNT(AUTO) 3.26 MIL/uL (4.0-5.2); RED CELL DISTRIBUTION WIDTH 17.0 % (11.5-15.0); WHITE BLOOD COUNT (AUTO) 14.8 K/uL (4.3-11.0)
[2025-10-28 07:27] LABS: ASPARTATE AMINOTRANSFERASE 22.0 U/L (15-37); CALCIUM, SERUM 8.0 mg/dL (8.5-10.1); CREATININE 0.2 mg/dL (0.6-1.3); PHOSPHORUS 2.3 mg/dL (2.5-4.9); SODIUM SERUM 138.0 mmol/L (136-145); TOTAL PROTEIN, SERUM 6.7 g/dL (6.4-8.2); UREA NITROGEN, BLOOD 20.0 mg/dL (7-18)
[2025-10-28 08:00] VITALS: BP 176/57; TEMP 97.9; O2SAT 97
[2025-10-28 12:00] VITALS: BP 144/58; TEMP 97.7; O2SAT 98
[2025-10-28] MEDS: NEUTRA PHOS 1 POWD.PACKET PO ONE (15:25)
[2025-10-28 16:00] VITALS: BP 150/57; TEMP 97.8; O2SAT 97
[2025-10-28] MEDS ORDERED: DILTIAZEM HCL 50 MG IV IV STA (17:55)
[2025-10-28] MEDS: DILTIAZEM HCL 25 MG IV IV ONE (18:04)
[2025-10-28] MEDS ORDERED: DOSING PER PHARMACY-AMIODARONE DRIP XX PRN ×2 (18:30)
[2025-10-28] MEDS: AMIODARONE 150 MG in IV D5W 100 ML IV ONE (18:48)
[2025-10-28] MEDS: AMIODARONE 450 MG in IV D5W 241 ML IV PRN (19:11)
[2025-10-28 20:44] LABS: ABG BASE EXCESS 5.3 mmol/L (-2.0-3.0); ABG OXYGEN SATURATION 97.0 % (94.0-98.0); ABG PCO2 41.8 mmHg (32.0-45.0); ABG PH 7.466 (7.350-7.450); ABG PO2 91.8 mmHg (83.0-108.0); ABG TOTAL HEMOGLOBIN 11.1 G/dL (12.0-16.0); FRACTIONATED INSPIRED OXYGEN 40.0 %; PEEP,BG 5 cm H2O; SET RATE, BG 12.0; SITE, ABG LEFT BRACHIAL; VT, ABG 450 mL
[2025-10-28 21:14] VITALS: BP 157/61; TEMP 97.5; O2SAT 100
[2025-10-29] VITALS: BP 148/62; TEMP 97.5; O2SAT 98
[2025-10-29 04:00] VITALS: BP 133/50; TEMP 97.7; O2SAT 100
[2025-10-29 08:00] VITALS: BP 143/52; TEMP 98.8; O2SAT 100
[2025-10-29] MEDS: AMIODARONE HCL 200 MG TABLET PO SCH (09:17)
[2025-10-29 10:46] LABS: PLATELET COUNT (AUTO) 257 K/uL (150-450); RED BLOOD CELL COUNT(AUTO) 3.15 MIL/uL (4.0-5.2); RED CELL DISTRIBUTION WIDTH 17.1 % (11.5-15.0); WHITE BLOOD COUNT (AUTO) 15.1 K/uL (4.3-11.0)
[2025-10-29 11:05] LABS: ASPARTATE AMINOTRANSFERASE 25.0 U/L (15-37); CALCIUM, SERUM 8.0 mg/dL (8.5-10.1); CREATININE 0.2 mg/dL (0.6-1.3); SODIUM SERUM 136.0 mmol/L (136-145); TOTAL PROTEIN, SERUM 6.4 g/dL (6.4-8.2); UREA NITROGEN, BLOOD 19.0 mg/dL (7-18)
[2025-10-29 12:00] VITALS: BP 150/67; TEMP 98.8; O2SAT 100
[2025-10-29 16:00] VITALS: BP 142/55; TEMP 97.6; O2SAT 99
[2025-10-29 20:00] VITALS: BP 140/59; TEMP 97.9; O2SAT 100
[2025-10-29 23:55] LABS: ABG BASE EXCESS 6.9 mmol/L (-2.0-3.0); ABG OXYGEN SATURATION 88.4 % (94.0-98.0); ABG PCO2 40.7 mmHg (32.0-45.0); ABG PH 7.496 (7.350-7.450); ABG PO2 52.8 mmHg (83.0-108.0); ABG TOTAL HEMOGLOBIN 11.4 G/dL (12.0-16.0); FRACTIONATED INSPIRED OXYGEN 100.0 %; SET RATE, BG 12.0; SITE, ABG RIGHT RADIAL; VT, ABG 450 mL
[2025-10-30] VITALS (22 sets, daily range): BP systolic 108–148; BP diastolic 40–108; TEMP 97.9–98.6; O2SAT 84–100
[2025-10-30 04:11] LABS: PLATELET COUNT (AUTO) 368 K/uL (150-450); RED BLOOD CELL COUNT(AUTO) 3.43 MIL/uL (4.0-5.2); RED CELL DISTRIBUTION WIDTH 17.1 % (11.5-15.0); WHITE BLOOD COUNT (AUTO) 21.9 K/uL (4.3-11.0)
[2025-10-30 04:18] LABS: CALCIUM, SERUM 8.3 mg/dL (8.5-10.1); CREATININE 0.3 mg/dL (0.6-1.3); SODIUM SERUM 136.0 mmol/L (136-145); UREA NITROGEN, BLOOD 29.0 mg/dL (7-18)
[2025-10-30 04:23] LABS: ASPARTATE AMINOTRANSFERASE 21.0 U/L (15-37); TOTAL PROTEIN, SERUM 6.8 g/dL (6.4-8.2)
[2025-10-30] MEDS ORDERED: DOSING PER PHARMACY-CEFEPIME IVPB XX PRN (06:00)
[2025-10-30] MEDS ORDERED: DOSING PER PHARMACY-VANCOMYCIN IV XX PRN (06:00)
[2025-10-30] MEDS ORDERED: CEFEPIME 1 GM in IV D5W 50 ML IV SCH (06:30)
[2025-10-30 07:52] LABS: ABG BASE EXCESS 6.2 mmol/L (-2.0-3.0); ABG OXYGEN SATURATION 90.6 % (94.0-98.0); ABG PCO2 39.4 mmHg (32.0-45.0); ABG PH 7.497 (7.350-7.450); ABG PO2 55.8 mmHg (83.0-108.0); ABG TOTAL HEMOGLOBIN 10.9 G/dL (12.0-16.0); FRACTIONATED INSPIRED OXYGEN 100.0 %; PEEP,BG 5 cm H2O; SET RATE, BG 12.0; SITE, ABG RIGHT RADIAL; VT, ABG 450 mL
[2025-10-30] MEDS: VANCOMYCIN 1.5 GM in IV D5W 500 ML IV ONE (07:57)
[2025-10-30] MEDS ORDERED: PHENYLEPHRINE 50 MG in IV NS 0.9% 245 ML IV PRN (08:00)
[2025-10-30] MEDS: CEFEPIME 2 GM in IV D5W 100 ML IV SCH (08:40)
[2025-10-30] MEDS: FUROSEMIDE 100 MG/10 ML VIAL IV SCH (11:31)
[2025-10-30] MEDS: VANCOMYCIN 750 MG in IV D5W 250 ML IV SCH (20:49)
[2025-10-30] MEDS: POLYETHYLENE GLYCOL 3350 17 GM POWD.PACK PO SCH (21:07)
[2025-10-31] VITALS (25 sets, daily range): BP systolic 95–164; BP diastolic 40–85; TEMP 97.8–98.5; O2SAT 92–100
[2025-10-31 04:18] LABS: PLATELET COUNT (AUTO) 290 K/uL (150-450); RED BLOOD CELL COUNT(AUTO) 2.91 MIL/uL (4.0-5.2); RED CELL DISTRIBUTION WIDTH 17.0 % (11.5-15.0); WHITE BLOOD COUNT (AUTO) 12.5 K/uL (4.3-11.0)
[2025-10-31 04:25] LABS: CALCIUM, SERUM 7.7 mg/dL (8.5-10.1); CREATININE 0.2 mg/dL (0.6-1.3); SODIUM SERUM 137.0 mmol/L (136-145); UREA NITROGEN, BLOOD 19.0 mg/dL (7-18)
[2025-10-31 04:31] LABS: ASPARTATE AMINOTRANSFERASE 23.0 U/L (15-37); TOTAL PROTEIN, SERUM 6.1 g/dL (6.4-8.2)
[2025-10-31] MEDS: POTASSIUM CHLORIDE 20 MEQ POWDER PACKET GT ONE (05:40)
[2025-10-31] MEDS: POTASSIUM CL. PREMIX PERIPHER. 50 ML IV SCH (06:47)
[2025-10-31 07:31] LABS: ABG BASE EXCESS 9.0 mmol/L (-2.0-3.0); ABG OXYGEN SATURATION 99.0 % (94.0-98.0); ABG PCO2 28.4 mmHg (32.0-45.0); ABG PH 7.640 (7.350-7.450); ABG PO2 120.2 mmHg (83.0-108.0); ABG TOTAL HEMOGLOBIN 10.8 G/dL (12.0-16.0); FRACTIONATED INSPIRED OXYGEN 70.0 %; PEEP,BG 5 cm H2O; SET RATE, BG 12.0; SITE, ABG RIGHT RADIAL; VT, ABG 450 mL
[2025-10-31] MEDS ORDERED: DIATR MEGLU/DIATRIZOATE SODIUM 30 ML BOTTLE (GASTROGRAPHIN) ONE (08:12)
[2025-10-31] MEDS ORDERED: POTASSIUM CHLORIDE 20 MEQ POWDER PACKET GT ONE ×2 (09:00→13:00)
[2025-11-01] VITALS (26 sets, daily range): BP systolic 122–181; BP diastolic 47–83; TEMP 97.5–98.3; O2SAT 93–99
[2025-11-01 05:03] LABS: PLATELET COUNT (AUTO) 350 K/uL (150-450); RED BLOOD CELL COUNT(AUTO) 3.14 MIL/uL (4.0-5.2); RED CELL DISTRIBUTION WIDTH 16.7 % (11.5-15.0); WHITE BLOOD COUNT (AUTO) 12.3 K/uL (4.3-11.0)
[2025-11-01 05:12] LABS: CALCIUM, SERUM 8.2 mg/dL (8.5-10.1); CREATININE 0.3 mg/dL (0.6-1.3); SODIUM SERUM 133.0 mmol/L (136-145); UREA NITROGEN, BLOOD 22.0 mg/dL (7-18)
[2025-11-01 05:18] LABS: ASPARTATE AMINOTRANSFERASE 21.0 U/L (15-37); TOTAL PROTEIN, SERUM 6.6 g/dL (6.4-8.2)
[2025-11-02] VITALS (33 sets, daily range): BP systolic 103–165; BP diastolic 43–72; TEMP 97.5–98; O2SAT 89–100
[2025-11-02 04:37] LABS: PLATELET COUNT (AUTO) 374 K/uL (150-450); RED BLOOD CELL COUNT(AUTO) 3.35 MIL/uL (4.0-5.2); RED CELL DISTRIBUTION WIDTH 17.0 % (11.5-15.0); WHITE BLOOD COUNT (AUTO) 11.6 K/uL (4.3-11.0)
[2025-11-02 04:46] LABS: CALCIUM, SERUM 8.3 mg/dL (8.5-10.1); CREATININE 0.2 mg/dL (0.6-1.3); SODIUM SERUM 133 mmol/L (136-145); UREA NITROGEN, BLOOD 25 mg/dL (7-18)
[2025-11-02 04:52] LABS: ASPARTATE AMINOTRANSFERASE 19 U/L (15-37); TOTAL PROTEIN, SERUM 6.6 g/dL (6.4-8.2)
[2025-11-02] MEDS ORDERED: DIATR MEGLU/DIATRIZOATE SODIUM 30 ML BOTTLE (GASTROGRAPHIN) ONE (11:50)
[2025-11-02] MEDS: FREE WATER VIA TUBE FEEDING GT SCH (17:00)
[2025-11-02 17:53] LABS: CREATININE, URINE 21.8 MG/DL (30.0-125.0); URINE SODIUM, RANDOM 6.0 mmol/l (40-220); URINE TOTAL PROTEIN 40.2 mg/dL (0-11.9)
[2025-11-02 18:23] LABS: APPEARANCE,URINE CLEAR (CLEAR); BLOOD, URINE NEGATIVE Ery/uL (NEGATIVE); LEUKOCYTE ESTERASE ,URINE 2+ (NEGATIVE); NITRITE, URINE NEGATIVE (NEGATIVE); UGLUCOSE NEGATIVE (NEGATIVE)
[2025-11-02 18:42] LABS: ADD URINE CULTURE YES; SQUAMOUS EPITHELIAL CELL,UR 0-2 /HPF (None Seen)
[2025-11-02 20:17] LABS: EOSINOPHIL,URINE Rare
[2025-11-03] VITALS (27 sets, daily range): BP systolic 120–192; BP diastolic 45–83; TEMP 97.3–98.2; O2SAT 89–100
[2025-11-03 04:30] LABS: PLATELET COUNT (AUTO) 354 K/uL (150-450); RED BLOOD CELL COUNT(AUTO) 3.28 MIL/uL (4.0-5.2); RED CELL DISTRIBUTION WIDTH 17.4 % (11.5-15.0); WHITE BLOOD COUNT (AUTO) 16.1 K/uL (4.3-11.0)
[2025-11-03 04:38] LABS: CALCIUM, SERUM 8.2 mg/dL (8.5-10.1); CREATININE 0.2 mg/dL (0.6-1.3); SODIUM SERUM 129.0 mmol/L (136-145); UREA NITROGEN, BLOOD 25.0 mg/dL (7-18)
[2025-11-03 04:44] LABS: ASPARTATE AMINOTRANSFERASE 19.0 U/L (15-37); TOTAL PROTEIN, SERUM 6.4 g/dL (6.4-8.2)
[2025-11-03] MEDS: CEFEPIME 2 GM in IV D5W 100 ML IV SCH (09:31)
[2025-11-03] MEDS: VANCOMYCIN 1 GM in IV D5W 250ml IV SCH (19:30)
[2025-11-04] VITALS (24 sets, daily range): BP systolic 114–169; BP diastolic 45–75; TEMP 97.5–97.9; O2SAT 94–100
[2025-11-04 04:41] LABS: PLATELET COUNT (AUTO) 337 K/uL (150-450); RED BLOOD CELL COUNT(AUTO) 3.14 MIL/uL (4.0-5.2); RED CELL DISTRIBUTION WIDTH 16.9 % (11.5-15.0); WHITE BLOOD COUNT (AUTO) 12.1 K/uL (4.3-11.0)
[2025-11-04 04:46] LABS: CALCIUM, SERUM 8.3 mg/dL (8.5-10.1); CREATININE 0.2 mg/dL (0.6-1.3); SODIUM SERUM 129.0 mmol/L (136-145); UREA NITROGEN, BLOOD 22.0 mg/dL (7-18)
[2025-11-04 04:57] LABS: ASPARTATE AMINOTRANSFERASE 19.0 U/L (15-37); TOTAL PROTEIN, SERUM 6.3 g/dL (6.4-8.2)
[2025-11-04 08:14] LABS: ABG BASE EXCESS 9.0 mmol/L (-2.0-3.0); ABG OXYGEN SATURATION 96.5 % (94.0-98.0); ABG PCO2 45.7 mmHg (32.0-45.0); ABG PH 7.483 (7.350-7.450); ABG PO2 81.2 mmHg (83.0-108.0); ABG TOTAL HEMOGLOBIN 10.5 G/dL (12.0-16.0); FRACTIONATED INSPIRED OXYGEN 50.0 %; PEEP,BG 5 cm H2O; SET RATE, BG 12.0; VT, ABG 400 mL
[2025-11-04] MEDS: CLOTRIMAZOLE 1% 15 GM TUBE TP SCH (09:36)
[2025-11-05] VITALS (23 sets, daily range): BP systolic 131–163; BP diastolic 49–69; TEMP 97.5–98.4; O2SAT 90–100
[2025-11-05 05:06] LABS: PLATELET COUNT (AUTO) 313 K/uL (150-450); RED BLOOD CELL COUNT(AUTO) 3.23 MIL/uL (4.0-5.2); RED CELL DISTRIBUTION WIDTH 16.9 % (11.5-15.0); WHITE BLOOD COUNT (AUTO) 11.3 K/uL (4.3-11.0)
[2025-11-05 05:12] LABS: CALCIUM, SERUM 8.4 mg/dL (8.5-10.1); CREATININE 0.2 mg/dL (0.6-1.3); SODIUM SERUM 131.0 mmol/L (136-145); UREA NITROGEN, BLOOD 22.0 mg/dL (7-18)
[2025-11-05 05:17] LABS: ASPARTATE AMINOTRANSFERASE 17.0 U/L (15-37)
[2025-11-05 06:25] LABS: TOTAL PROTEIN, SERUM 6.6 g/dL (6.4-8.2)
[2025-11-06] VITALS: BP 135/52; TEMP 97.6; O2SAT 98
[2025-11-06 04:00] VITALS: BP 164/58; TEMP 97.6; O2SAT 98
[2025-11-06 08:00] VITALS: BP 159/59; TEMP 98.1; O2SAT 99
[2025-11-06 08:16] LABS: PLATELET COUNT (AUTO) 334 K/uL (150-450); RED BLOOD CELL COUNT(AUTO) 3.32 MIL/uL (4.0-5.2); RED CELL DISTRIBUTION WIDTH 17.1 % (11.5-15.0); WHITE BLOOD COUNT (AUTO) 10.4 K/uL (4.3-11.0)
[2025-11-06 09:01] LABS: ASPARTATE AMINOTRANSFERASE 21.0 U/L (15-37); CALCIUM, SERUM 8.6 mg/dL (8.5-10.1); CREATININE 0.2 mg/dL (0.6-1.3); SODIUM SERUM 136.0 mmol/L (136-145); TOTAL PROTEIN, SERUM 6.8 g/dL (6.4-8.2); UREA NITROGEN, BLOOD 20.0 mg/dL (7-18)
[2025-11-06 12:00] VITALS: BP 145/54; O2SAT 97
[2025-11-06 16:00] VITALS: BP 151/55; TEMP 98.8; O2SAT 98
[2025-11-06 20:15] VITALS: BP 138/53; TEMP 97.7; O2SAT 100
[2025-11-07] VITALS: BP 147/58; TEMP 97.9; O2SAT 100
[2025-11-07 04:00] VITALS: BP 134/56; TEMP 98.2; O2SAT 100
[2025-11-07 08:00] VITALS: BP 155/56; TEMP 98.8; O2SAT 99
[2025-11-07 12:00] VITALS: BP 160/56; TEMP 100.3; O2SAT 99
[2025-11-07 16:00] VITALS: BP 136/45; TEMP 98.2; O2SAT 100
[2025-11-07 20:00] VITALS: BP 130/52; TEMP 98.1; O2SAT 97
[2025-11-08] VITALS: BP 135/59; TEMP 98.2; O2SAT 99
[2025-11-08 04:00] VITALS: BP 134/45; TEMP 98.6; O2SAT 99
[2025-11-08 08:00] VITALS: BP 145/49; TEMP 98.6; O2SAT 95
[2025-11-08 08:21] LABS: ASPARTATE AMINOTRANSFERASE 18.0 U/L (15-37); CALCIUM, SERUM 8.2 mg/dL (8.5-10.1); CREATININE 0.2 mg/dL (0.6-1.3); PHOSPHORUS 2.8 mg/dL (2.5-4.9); SODIUM SERUM 136.0 mmol/L (136-145); TOTAL PROTEIN, SERUM 6.8 g/dL (6.4-8.2); UREA NITROGEN, BLOOD 22.0 mg/dL (7-18)
[2025-11-08 08:31] LABS: PLATELET COUNT (AUTO) 273 K/uL (150-450); RED BLOOD CELL COUNT(AUTO) 3.33 MIL/uL (4.0-5.2); RED CELL DISTRIBUTION WIDTH 17.3 % (11.5-15.0); WHITE BLOOD COUNT (AUTO) 9.6 K/uL (4.3-11.0)
[2025-11-08 12:00] VITALS: BP 145/48; TEMP 97.8; O2SAT 98
[2025-11-08 16:00] VITALS: BP 142/40; TEMP 97.8; O2SAT 98
[2025-11-08 20:00] VITALS: BP 133/47; TEMP 97.9; O2SAT 97
[2025-11-09] VITALS: BP 135/47; TEMP 98.3; O2SAT 97
[2025-11-09 04:00] VITALS: BP 103/40; TEMP 98; O2SAT 99
[2025-11-09 08:00] VITALS: BP 148/68; TEMP 98.6; O2SAT 98
[2025-11-09 12:00] VITALS: BP 139/56; TEMP 98.6; O2SAT 100; O2SAT 98
[2025-11-09 16:00] VITALS: BP 142/55; TEMP 98.4; O2SAT 97
[2025-11-09 20:00] VITALS: BP 129/44; TEMP 97.8; O2SAT 98
[2025-11-09] MEDS: AMIODARONE HCL 200 MG TABLET GT SCH (21:31)
[2025-11-10] VITALS: BP 142/40; TEMP 97.9; O2SAT 98
[2025-11-10 04:00] VITALS: BP 138/60; TEMP 98.1; O2SAT 98
[2025-11-10 08:03] VITALS: BP 158/59; TEMP 98.1; O2SAT 99
[2025-11-10 12:03] VITALS: BP 137/52; TEMP 98.6; O2SAT 98
[2025-11-10 16:55] VITALS: BP 139/57; TEMP 97.3; O2SAT 98
[2025-11-10 20:00] VITALS: BP 124/52; TEMP 97.7; O2SAT 98
[2025-11-11] VITALS: BP 135/62; TEMP 97.8; O2SAT 98
[2025-11-11 04:00] VITALS: BP 134/58; TEMP 97.8; O2SAT 98
[2025-11-11 06:06] LABS: PLATELET COUNT (AUTO) 223 K/uL (150-450); RED BLOOD CELL COUNT(AUTO) 3.24 MIL/uL (4.0-5.2); RED CELL DISTRIBUTION WIDTH 17.2 % (11.5-15.0); WHITE BLOOD COUNT (AUTO) 11.5 K/uL (4.3-11.0)
[2025-11-11 06:17] LABS: CALCIUM, SERUM 8.4 mg/dL (8.5-10.1); CREATININE 0.2 mg/dL (0.6-1.3); PHOSPHORUS 2.9 mg/dL (2.5-4.9); SODIUM SERUM 141.0 mmol/L (136-145); UREA NITROGEN, BLOOD 31.0 mg/dL (7-18)
[2025-11-11 08:00] VITALS: BP 147/45; TEMP 97.9; O2SAT 97
[2025-11-11 12:00] VITALS: BP 139/61; TEMP 97.7; O2SAT 99
[2025-11-11 16:00] VITALS: BP 142/48; TEMP 97.5; O2SAT 96
== END 2025-11-11 20:08 | DRG 3 ==
LOC: ER 20:04 → ICU 22:24 → TELE1 10-01 20:10 → TELE-TD 10-28 19:16 → TELE1 10-29 09:26 → ICU 10-30 00:36 → TELE-TD 11-05 22:43 → TELE1 11-06 10:14
PROVIDERS: ADMIT Nurse Practitioner Acute Care
PROC: 5A09557 Assistance with Respiratory Ventilation, Greater than 96 Consecutive Hours, Continuous Positive Airway Pressure (ICD-10-PCS; 2025-09-07)
PROC: 0KBP0ZZ Excision of Left Hip Muscle, Open Approach (ICD-10-PCS; principal; 2025-09-08)
PROC: 0KBN0ZZ Excision of Right Hip Muscle, Open Approach (ICD-10-PCS; 2025-09-08)
PROC: 0D20XUZ Change Feeding Device in Upper Intestinal Tract, External Approach (ICD-10-PCS; 2025-09-14)
PROC: 5A1955Z Respiratory Ventilation, Greater than 96 Consecutive Hours (ICD-10-PCS; 2025-09-26)
PROC: 0BH18EZ Insertion of Endotracheal Airway into Trachea, Via Natural or Artificial Opening Endoscopic (ICD-10-PCS; 2025-09-26)
PROC: 0B113F4 Bypass Trachea to Cutaneous with Tracheostomy Device, Percutaneous Approach (ICD-10-PCS; 2025-09-30)
PROC: 0BJ08ZZ Inspection of Tracheobronchial Tree, Via Natural or Artificial Opening Endoscopic (ICD-10-PCS; 2025-09-30)
PROC: 0QB10ZZ Excision of Sacrum, Open Approach (ICD-10-PCS; 2025-10-20)
PROC: 05HB33Z Insertion of Infusion Device into Right Basilic Vein, Percutaneous Approach (ICD-10-PCS; 2025-10-28)
DX: A41.51 Sepsis due to Escherichia coli [E. coli] (principal); L89.154 Pressure ulcer of sacral region, stage 4; J69.0 Pneumonitis due to inhalation of food and vomit; J15.8 Pneumonia due to other specified bacteria; J96.01 Acute respiratory failure with hypoxia; J15.69 Pneumonia due to other Gram-negative bacteria; I50.43 Acute on chronic combined systolic (congestive) and diastolic (congestive) heart failure; G92.8 Other toxic encephalopathy; E87.4 Mixed disorder of acid-base balance; I16.1 Hypertensive emergency; T17.890A Other foreign object in other parts of respiratory tract causing asphyxiation, initial encounter; C85.90 Non-Hodgkin lymphoma, unspecified, unspecified site; N39.0 Urinary tract infection, site not specified; R65.20 Severe sepsis without septic shock; B96.89 Other specified bacterial agents as the cause of diseases classified elsewhere; E44.0 Moderate protein-calorie malnutrition; I11.0 Hypertensive heart disease with heart failure; F01.50 Vascular dementia, unspecified severity, without behavioral disturbance, psychotic disturbance, mood disturbance, and anxiety; J43.9 Emphysema, unspecified; G40.909 Epilepsy, unspecified, not intractable, without status epilepticus; G93.89 Other specified disorders of brain; D63.8 Anemia in other chronic diseases classified elsewhere; D68.59 Other primary thrombophilia; E87.1 Hypo-osmolality and hyponatremia; E87.0 Hyperosmolality and hypernatremia; T17.990A Other foreign object in respiratory tract, part unspecified in causing asphyxiation, initial encounter; W44.F9XA Other object of natural or organic material, entering into or through a natural orifice, initial encounter; Z20.822 Contact with and (suspected) exposure to COVID-19; Y92.049 Unspecified place in boarding-house as the place of occurrence of the external cause; Z74.01 Bed confinement status; Z85.841 Personal history of malignant neoplasm of brain; K21.9 Gastro-esophageal reflux disease without esophagitis; Z79.899 Other long term (current) drug therapy; I25.10 Atherosclerotic heart disease of native coronary artery without angina pectoris; M89.8X9 Other specified disorders of bone, unspecified site; Z86.73 Personal history of transient ischemic attack (TIA), and cerebral infarction without residual deficits; Z78.9 Other specified health status; Y95 Nosocomial condition; L98.9 Disorder of the skin and subcutaneous tissue, unspecified; S00.31XA Abrasion of nose, initial encounter; X58.XXXA Exposure to other specified factors, initial encounter; Y92.9 Unspecified place or not applicable; E88.09 Other disorders of plasma-protein metabolism, not elsewhere classified; E86.1 Hypovolemia; E88.01 Alpha-1-antitrypsin deficiency; R13.10 Dysphagia, unspecified; E86.0 Dehydration; E87.6 Hypokalemia; E83.51 Hypocalcemia; E83.39 Other disorders of phosphorus metabolism; K59.00 Constipation, unspecified; Z74.09 Other reduced mobility; I48.0 Paroxysmal atrial fibrillation; Z92.21 Personal history of antineoplastic chemotherapy; Z98.890 Other specified postprocedural states; R79.89 Other specified abnormal findings of blood chemistry
CPT/HCPCS: 31720; 36410; 36415; 36600; 70450-TC; 71045-TC; 71250-TC; 74018; 80048-TC; 80053-TC; 80076-TC; 80202-TC; 81001; 82570-TC; 82803-TC; 83605-TC; 83735-TC; 83880; 84100-TC; 84300-TC; 84443-TC; 84484-TC; 84550-TC; 85025-TC; 85027-TC; 85730-TC; 87040-TC; 87070-TC; 87081-TC; 87086-TC; 87186-TC; 87205-TC; 93307-TC; 93970-TC; 93971-TC; 94003-TC; 94640-TC; 94668-TC; 94760-TC; 94762-TC; 94799-TC; 97110-TC; 97112-TC; 97530-TC; 99082-TC; A4223; A4623; A6213; A6253; A6254; A6403; A7526; A9563; G0378; J0282; J0692; J1120; J1160; J1650; J1938; J1953; J2185; J2250; J2270; J2543; J3010; J3373; J3374; J3480; J3490; J7030; J7042; J7050; J7060; J7120; Q9963